=== PATIENT | female | born 1980 | race Caucasian/White ===

== ENCOUNTER 2016-06-11 19:05 | Emergency (ER) | payer OTHER ==
[~2016-06-11] VITALS: Ht 165.1 cm; Wt 75.3 kg
[~2016-06-11 19:05] MED LIST: BUPR-79 PO
[2016-06-11 19:09] VITALS: TEMP 37.4; Ht 165.1 cm; Wt 75.3 kg
[2016-06-11] MEDS ORDERED: CEFTRIAXONE SOD INJ 1 GM ADDVIAL IV STA (20:29)
[2016-06-11] MEDS ORDERED: ONDANSETRON INJ 2 MG/ML 2 ML VIAL IV STA (20:29)
[2016-06-11] MEDS ORDERED: SODIUM CHLORIDE 0.9% 1000ML 1,000 ML IV STA (20:29)
[2016-06-11] MEDS ORDERED: MoRPHine SULFATE 4 MG/ML 1 ML CARP\\VIAL IV STA (20:29)
[2016-06-11 21:17] LABS: BASO % 0.2 %; BASO ABS # 0.02 K/uL (0-0.2); COMPLETE YES; EOS % 0.2 %; HEMATOCRIT 42.1 % (37-47); IG% 0.1 %; LYMPH % 18.8 %; LYMPH ABS # 1.89 K/uL (1.2-3.4); MEAN CELL VOLUME 86.8 fL (80-100); MEAN CORPUSCULAR HEMOGLOBIN 30.3 pg (25-34); MEAN CORPUSCULAR HGB CONC 34.9 g/dl (32-36); NEUT % 72.7 %; PLATELET COUNT 300 K/uL (130-400); RED BLOOD COUNT 4.85 M/uL (4.2-5.4); WHITE BLOOD COUNT 10.07 K/uL (4.8-10.8)
[2016-06-11] MEDS ORDERED: CIPR1TAB10 PO (21:25)
--- NOTE | 2016-06-11 21:26 | DIAGNOSTIC IMAGING REPORT ---
CT SCAN OF THE ABDOMEN AND PELVIS WITHOUT CONTRAST CLINICAL HISTORY: Right flank pain COMPARISON STUDY: March 2013 TECHNIQUE: CT scan of the abdomen and pelvis was performed from the lung bases to the proximal femurs. Images are reviewed in the axial, sagittal, and coronal planes. IV contrast was not administered for this examination. CT DOSE: 710.44 mGy.cm FINDINGS: Lower chest: The heart is normal in size and configuration, without pericardial effusion. The lung bases and pleural spaces are clear. Liver: The unenhanced liver is normal in size, contour, and attenuation. There is no intrahepatic biliary ductal dilatation. Gallbladder: Unremarkable. Spleen: Normal in size and attenuation. Pancreas: Unremarkable. Adrenal glands: Unremarkable. Kidneys: There is a punctate nonobstructing left renal calculus. No ureteral or bladder calculi are visualized. There is minimal fullness the right renal collecting system. There is equivocal proximal right ureteral edema. The findings are likely secondary to either a passed calculus or urinary tract infection. Bowel: There are no transition zones indicate bowel obstruction. By history the appendix is surgically absent. There is no acute diverticulitis. Peritoneum: There is no intraperitoneal free air or abdominal ascites. Vasculature: The abdominal aorta is normal in course and caliber. Adenopathy: None. Pelvic viscera: The bladder, and pelvic viscera are unremarkable. Skeletal structures: No destructive osseous lesions are seen. IMPRESSION: 1. No evidence of bowel obstruction. No evidence of free air 2. Punctate nonobstructing left renal calculus 3. Minimal fullness of the right renal collecting system and equivocal proximal right periureteral edema. The findings are likely secondary to either a recently passed calculus or urinary tract infection Electronically signed by: Stevie Morley M.D. 06/11/2016 9:25 PM Dictated Date/Time: 06/11/2016 9:20 PM
[2016-06-11 21:33] LABS: BUN/CREATININE RATIO 14.2 (10-20); C-REACTIVE PROTEIN 2.98 mg/dl (0-0.29); MAGNESIUM 2.3 mg/dl (1.8-2.4); POTASSIUM 3.7 mmol/L (3.5-5.1)
[2016-06-11 21:47] LABS: URINE APPEARANCE TURBID (CLEAR); URINE COLOR DK YELLOW; URINE EPITHELIAL CELL AUTO >30 /lpf (0-5); URINE NITRITE POS (NEG); URINE PH 5.5 (4.5-7.5); URINE SPECIFIC GRAVITY 1.031 (1.000-1.030); UROBILINOGEN NEG (NEG); ZZUR CULT IF INDIC CLEAN CATCH YES
[2016-06-11 21:49] LABS: MANUAL MICROSCOPIC REQUIRED? NO; REVIEW REQ? YES
[2016-06-11 21:50] LABS: URINE BILIRUBIN NEG (NEG)
[2016-06-11 22:01] LABS: URINE MUCUS PRESENT (NONE PRSENT)
[2016-06-11] MEDS ORDERED: PERCOCET HOME PACK PO ONE (22:30)
[2016-06-11] MEDS ORDERED: OXYC-57 PO (22:34)
--- NOTE | 2016-06-11 22:36 | EMERGENCY ROOM VISIT NOTE ---
History First contact with patient: 20:22 Chief Complaint: URINARY SYMPTOMS Stated Complaint: BACK PAIN, VOMITING, BEING TREATED FOR KIDNEY INFE Nursing Triage Summary: pt co right low back pain, worse for 2-3 days. states she was dx with kidney infection on wednesday at pcp, given cipro. states "it's the wrong antiboitic." pt tearful. rates pain 10/10. associates n/v. pt states it "hurts" after she urinates. History of Present Illness The patient is a 35 year old female who presents to the Emergency Department by private vehicle for evaluation of her RIGHT-sided flank pain and symptoms of urinary tract infection. The patient reports that she started with symptoms of burning with urination and blood in her urine last week. Her symptoms progressively worsened. She was seen on Wednesday for primary care provider's office and started on Bactrim. They were contacted 2 days later and the antibiotic was changed to Cipro has a urine culture was found to be sensitive to this antibiotic. Despite being on the medication, she has had worsening pain in the RIGHT flank with persistent dysuria and occasional fevers. The patient has had nausea as well as vomiting. She reports a history of similar infection in the fall. The patient rates her current discomfort as a 10/10. She denies any headaches, dizziness, light headedness, chest pain, palpitations , short of breath, hematemesis, hematochezia, melena, hematuria, or dysuria. Review of Systems A complete 10-point Review of Systems was discussed with the patient, with pertinent positives and negatives listed in the History of Present Illness. All remaining Review of Systems questions can be considered negative unless otherwise specified. Past Medical/Surgical History Medical Problems: (1) History of D&C Surgical Problems: (1) History of appendectomy Family History FHx: breast cancer (aunt) FHx: heart disease (father, grandfather) FHx: hypertension (mother) Social History Smoking Status: Never Smoker Smokeless Tobacco Use: No Alcohol Use: occasionally Drug Use: none Marital Status: Housing Status: lives with family Occupation Status: employed Current/Historical Medications Scheduled Ciprofloxacin Hcl (Cipro), 500 MG PO BID Scheduled PRN Tramadol (Ultram), 1-2 TAB PO Q4H PRN for Pain Allergies Coded Allergies: Sumatriptan (Verified Allergy, ., 03/13/13) Physical Exam Vital Signs Date Time Temp Pulse Resp B/P Pulse Ox O2 Delivery O2 Flow Rate FiO2 06/11/16 22:56 77 18 130/75 94 06/11/16 21:22 73 18 126/83 97 Room Air 06/11/16 20:43 82 18 125/84 96 Room Air 06/11/16 19:09 37.4 101 16 129/72 97 Room Air Pain Rating (0-10): 10 Physical Exam VITAL SIGNS - Vital signs and nursing notes were reviewed. GENERAL - 35-year-old female appearing her stated age who is in no acute distress. Communicates well with provider and answers questions appropriately. LUNGS - Chest wall symmetric without accessory muscle use, intercostals retractions, or central cyanosis. Normal vesicular breath sounds CTA B/L. No wheezes, rales, or rhonchi appreciated. CARDIAC - RRR with S1/S2. No murmur, rubs, or gallops appreciated. ABDOMEN - Abdominal contour flat and without pulsations or visible masses. BS normoactive all four quadrants. No tenderness to palpation appreciated throughout. No guarding. No Rebound Tenderness. Negative Rovsing's. Negative Richmond's. No palpable masses, hepatosplenomegaly, or ascites noted. PSYCH - A&Ox3 and cooperates fully with examiner. Pt is very pleasant and interacts well with examiner. Medical Decision & Procedures ER Provider Diagnostic Interpretation: Radiological imaging and reports were reviewed by myself. Radiologist's Interpretation as follows: CT SCAN OF THE ABDOMEN AND PELVIS WITHOUT CONTRAST CLINICAL HISTORY: Right flank pain COMPARISON STUDY: March 2013 TECHNIQUE: CT scan of the abdomen and pelvis was performed from the lung bases to the proximal femurs. Images are reviewed in the axial, sagittal, and coronal planes. IV contrast was not administered for this examination. CT DOSE: 710.44 mGy.cm FINDINGS: Lower chest: The heart is normal in size and configuration, without pericardial effusion. The lung bases and pleural spaces are clear. Liver: The unenhanced liver is normal in size, contour, and attenuation. There is no intrahepatic biliary ductal dilatation. Gallbladder: Unremarkable. Spleen: Normal in size and attenuation. Pancreas: Unremarkable. Adrenal glands: Unremarkable. Kidneys: There is a punctate nonobstructing left renal calculus. No ureteral or bladder calculi are visualized. There is minimal fullness the right renal collecting system. There is equivocal proximal right ureteral edema. The findings are likely secondary to either a passed calculus or urinary tract infection. Bowel: There are no transition zones indicate bowel obstruction. By history the appendix is surgically absent. There is no acute diverticulitis. Peritoneum: There is no intraperitoneal free air or abdominal ascites. Vasculature: The abdominal aorta is normal in course and caliber. Adenopathy: None. Pelvic viscera: The bladder, and pelvic viscera are unremarkable. Skeletal structures: No destructive osseous lesions are seen. IMPRESSION: 1. No evidence of bowel obstruction. No evidence of free air 2. Punctate nonobstructing left renal calculus 3. Minimal fullness of the right renal collecting system and equivocal proximal right periureteral edema. The findings are likely secondary to either a recently passed calculus or urinary tract infection Laboratory Results 06/11/16 20:52 Red Blood Count 4.85, Mean Corpuscular Volume 86.8, Mean Corpuscular Hemoglobin 30.3, Mean Corpuscular Hemoglobin Concent 34.9, Mean Platelet Volume 9.0, Neutrophils (%) (Auto) 72.7, Lymphocytes (%) (Auto) 18.8, Monocytes (%) (Auto) 8.0, Eosinophils (%) (Auto) 0.2, Basophils (%) (Auto) 0.2, Neutrophils # (Auto) 7.32, Lymphocytes # (Auto) 1.89, Monocytes # (Auto) 0.81, Eosinophils # (Auto) 0.02, Basophils # (Auto) 0.02 06/11/16 20:52 Test 06/11/16 20:52 06/11/16 20:55 06/11/16 21:26 White Blood Count 10.07 K/uL (4.8-10.8) Red Blood Count 4.85 M/uL (4.2-5.4) Hemoglobin 14.7 g/dL (12.0-16.0) Hematocrit 42.1 % (37-47) Mean Corpuscular Volume 86.8 fL (80-100) Mean Corpuscular Hemoglobin 30.3 pg (25-34) Mean Corpuscular Hemoglobin Concent 34.9 g/dl (32-36) Platelet Count 300 K/uL (130-400) Mean Platelet Volume 9.0 fL (7.4-10.4) Neutrophils (%) (Auto) 72.7 % Lymphocytes (%) (Auto) 18.8 % Monocytes (%) (Auto) 8.0 % Eosinophils (%) (Auto) 0.2 % Basophils (%) (Auto) 0.2 % Neutrophils # (Auto) 7.32 K/uL (1.4-6.5) Lymphocytes # (Auto) 1.89 K/uL (1.2-3.4) Monocytes # (Auto) 0.81 K/uL (0.11-0.59) Eosinophils # (Auto) 0.02 K/uL (0-0.5) Basophils # (Auto) 0.02 K/uL (0-0.2) RDW Standard Deviation 40.8 fL (36.4-46.3) RDW Coefficient of Variation 12.7 % (11.5-14.5) Immature Granulocyte % (Auto) 0.1 % Immature Granulocyte # (Auto) 0.01 K/uL (0.00-0.02) Anion Gap 9.0 mmol/L (3-11) Est Creatinine Clear Calc Drug Dose 79.0 ml/min Estimated GFR () 83.9 Estimated GFR (Non- 72.4 BUN/Creatinine Ratio 14.2 (10-20) Calcium Level 9.0 mg/dl (8.5-10.1) Magnesium Level 2.3 mg/dl (1.8-2.4) Total Bilirubin 0.8 mg/dl (0.2-1) Aspartate Amino Transf (AST/SGOT) 11 U/L (15-37) Alanine Aminotransferase (ALT/SGPT) 17 U/L (12-78) Alkaline Phosphatase 63 U/L (45-117) C-Reactive Protein 2.98 mg/dl (0-0.29) Total Protein 8.4 gm/dl (6.4-8.2) Albumin 4.2 gm/dl (3.4-5.0) Globulin 4.2 gm/dl (2.5-4.0) Albumin/Globulin Ratio 1.0 (0.9-2) Lipase 166 U/L (73-393) Bedside Lactic Acid Venous 0.89 mmol/L (0.90-1.70) Urine Color DK YELLOW Urine Appearance TURBID (CLEAR) Urine pH 5.5 (4.5-7.5) Urine Specific Vinson 1.031 (1.000-1.030) Urine Protein 2+ (NEG) Urine Glucose (UA) NEG (NEG) Urine Ketones 4+ (NEG) Urine Occult Blood 3+ (NEG) Urine Nitrite POS (NEG) Urine Bilirubin NEG (NEG) Urine Urobilinogen NEG (NEG) Urine Leukocyte Esterase LARGE (NEG) Urine WBC (Auto) >30 /hpf (0-5) Urine RBC (Auto) 10-30 /hpf (0-4) Urine Hyaline Casts (Auto) 0 /lpf (0-5) Urine Epithelial Cells (Auto) >30 /lpf (0-5) Urine Bacteria (Auto) NEG (NEG) Urine Pathogenic Casts /lpf (0) Urine Mucus PRESENT (NONE PRSENT) Urine Yeast (Auto) (NONE PRSENT) Urine Test NEG (NEG) Medications Administered Medications (Trade) Dose Ordered Sig/Lilliam Route Start Time Stop Time Status Last Admin Dose Admin Sodium Chloride (Nss 1000ml) 1,000 ml @ 999 mls/hr Q1H1M STAT IV 06/11/16 20:29 06/11/16 21:29 DC 06/11/16 21:05 999 MLS/HR Ondansetron HCl (Zofran Inj) 4 mg NOW STAT IV 06/11/16 20:29 06/11/16 20:32 DC 06/11/16 21:04 4 MG Morphine Sulfate (MoRPHine SULFATE INJ) 4 mg NOW STAT IV 06/11/16 20:29 06/11/16 20:33 DC 06/11/16 21:05 4 MG Ceftriaxone Sodium (Rocephin Inj) 1 gm NOW STAT IV 06/11/16 20:29 06/11/16 20:33 DC 06/11/16 21:51 1 GM Tramadol HCl (Ultram Home Pack) 1 homepack UD ONCE PO 06/11/16 23:00 06/11/16 23:01 DC 06/11/16 22:54 1 HOMEPACK ED Course Patient was seen and evaluated by myself. Labs were drawn, saline lock in place. The patient was hydrated with a 1000 mL normal saline bolus. She was treated with 4 mg morphine and 4 mg Zofran intravenously for pain and nausea. She was treated with 1 g of Rocephin intravenously after blood cultures have been obtained. CT of the abdomen and pelvis with IV or oral contrast was obtained. Laboratory results demonstrate no acute leukocytosis, worrisome anemia, or bandemia. The patient has no significant electrolyte abnormalities. Urinalysis concerning for infection. Imaging results as above. Laboratory results and imaging studies were reviewed with the patient who acknowledges understanding. The patient was offered admission for continued pain medication as well as aggressive management for pyelonephritis. She declines at this time. She will continue Cipro. She was provided pain medication for home. The patient was educated on worrisome symptoms for return visit to the emergency department. Patient discharged home afebrile and in good condition. Medical Decision Given the patient's presentation and exam findings, I did elect to perform the above-mentioned workup. The patient presents today with RIGHT-sided flank pain , nausea, and dysuria. The patient is likely experiencing pyelonephritis secondary to a worsening UTI. She has only received a few doses of the Cipro. I questioned the patient is subtherapeutic at this point warranting intravenous antibiotics. She has no fever. She has no leukocytosis. She was provided intravenous Rocephin as well as pain medication. Patient responded well. She was offered admission for continued management which she adamantly declines at this point. She will follow-up with her primary care provider from today's visit. She will continue her Cipro. She will return for any changing or worsening symptoms. Patient discharged home afebrile and in good condition. In the evaluation and treatment of this patient, the following differential diagnoses were considered: Bladder Cancer, Chlamydial Genitourinary Infection, Cystitis, Herpes Simplex, Interstitial Cystitis, PID, Pyelonephritis, Urethritis , or Vaginitis. Impression Primary Impression: Pyelonephritis Departure Information Dispostion Home / Self-Care Condition GOOD Prescriptions Tramadol (Ultram) 50 Mg Tab 1-2 TAB PO Q4H Y for Pain, #20 TAB For Initial Treatment Prov: Bronson Littlejohn PA-C 06/11/16 Referrals César Yeh M.D.([facility]) (PCP) Patient Instructions My [facility], Pyelonephritis - [facility] Additional Instructions You have been treated in the Emergency Department for a Kidney Infection - Pyelonephritis. Continue your Cipro as prescribed. You have been prescribed Percocet to be used for pain control. This is a narcotic medication. You cannot drive or consume alcohol while on this medicine. This medicine should only be used for pain that cannot be controlled with [id number] pain medicines. For pain control, you can use the following [id number] medicines (if >12 yo): - Regular strength (325mg/tab) Tylenol (acetaminophen) 2 tabs every 4-6 hours as needed. Do not exceed 12 tablets in a 24 hour period. Avoid taking more than 4 grams (4000 mg) of Tylenol per day. This includes any other sources of acetaminophen you may take on a regular basis. - Regular strength (200 mg/tab) Advil (ibuprofen) 1-2 tabs every 4-6 hours as needed. Do not exceed a dose of 3200 mg per day. Drink plenty of water and stay well hydrated. As with any trip to the Emergency Department, you should follow-up with your Primary Care Provider from today's visit. Return to the emergency department if your symptoms persist despite treatment plan outlined above or if the following symptoms occur: increased fevers, chills , low back pain, nausea/vomiting, or blood in your urine.
[2016-06-11] MEDS ORDERED: TRAM-10 PO (22:51)
[2016-06-11 22:56] VITALS: BP 130/75; PULSE 77; O2SAT 94
[2016-06-11] MEDS ORDERED: TRAMADOL HCL 50 MG HOME PACK PO ONE (23:00)
== END 2016-06-11 22:56 | disposition home or self-care (01) ==
LOC: C.EDB 19:06 → C.EDA 22:56
DX: N12 Tubulo-interstitial nephritis, not specified as acute or chronic (principal)

== ENCOUNTER → 2017-04-15 | Outpatient (CLI) | payer OTHER ==
[~2017-04-15] MED LIST changes: -BUPR-79 PO; +CIPR1TAB10 PO
== END | disposition home or self-care (01) ==
LOC: C.PAPS 16:03
PROVIDERS: ATTEND Obstetrics & Gynecology
DX: Z12.4 Encounter for screening for malignant neoplasm of cervix (principal); R87.610 Atypical squamous cells of undetermined significance on cytologic smear of cervix (ASC-US)

== ENCOUNTER 2018-07-29 05:28 | Inpatient (IN) ==
--- NOTE | 2018-07-15 13:54 | PAT Medication Instructions ---
Medication Instructions Date of Service July 15, 2018 Home Medications norethindrone acetate 5 mg PO QAM ASK your surgeon for instructions norethindrone acetate 5 mg PO QAM Other Notes If you have any questions please call us at [phone] or [phone] or [phone] or [phone]
--- NOTE | 2018-07-18 10:25 | Anesthesiology Consultation ---
Date of Service July 18, 2018 Assessment & Plan (1) Encounter for pre-operative examination: - Check test AM DOS Chart Review Chart Review: Acceptable Risk for Surgery and Patient seen in Pre Admission Te sting Teaching & Discussion Pre-Anesthesia Teaching/Discussion Notes: Instructed NPO after midnight before surgery,except medications with 15 cc of water. Medication instructions provided according to the PAT guidelines. History Surgery Operation Date: 07/29/18 11:30 Proposed Procedures p Total Abdominal Hysterectomy, Preserve Ovaries - Rolando Jimenez MD Height/Weight Height: 5 ft 6 in Weight: 92.3 kg Allergies Allergy/AdvReac Type Severity Reaction Status Date / Time sumatriptan Allergy Severe HIVES Verified 06/10/18 08:29 "THROAT SWELLING SHUT" Medications Home Medications Medication Instructions Recorded Confirmed Last Taken norethindrone acetate 5 mg PO QAM 06/10/18 06/10/18 Unknown Past Medical History Medical History Endometriosis Migraine HX Temporomandibular joint disorder LOCKED X 1 ("LONG TIME AGO") Past Surgical History Surgical History History of appendectomy History of dilatation and curettage Past Anesthesia History No Hx of Anesthesia Complications and No Family Hx of Anesthesia Complications History of PONV No Motion Sickness Screening History of Motion Sickness: No Social History Smoking Status: Never smoker Do You Dip or Chew Tobacco: No Hx Alcohol Use: Yes Alcohol type: wine and hard liquor alcohol intake frequency: a few times a month Hx Substance Use: No substance use type: does not use Exercise / Class Metabolic Activity II 4-5 Yardwork/Stairs/Walk up hill Review of Systems Patient denies chest pain, shortness of breath, dyspnea on exertion, cough, wheezing, palpitations. Physical Exam Vital Signs VITALS BP 107/71 P 73 TEMP 98.7 SP02 98%RA RESP 14 PHYSICAL Full neck and c-spine range of motion. Full TMJ range of motion. TMD 3.5 finger breaths Mallampati Score 1 Dentition: intact Lungs: clear throughout to auscultation Cardiac: regular rate and rhythm, no murmurs noted Spine: normal Extremities: no edema Testing Laboratory Results 07/18/18 10:37 07/18/18 10:37 Blood Type A Positive 07/18/18 10:37 Antibody Screen NEGATIVE 07/18/18 10:37 PT 9.7 Seconds (9.0-12.0) 07/18/18 10:37 INR 0.9 (0.9-1.1) 07/18/18 10:37 APTT 24.8 Seconds (21.0-31.0) 07/18/18 10:37
--- NOTE | 2018-07-18 11:37 | History and Physical Report ---
DATE OF ADMISSION: 07/29/2018 CHIEF COMPLAINT: Pelvic pain, heavy vaginal bleeding. History of biopsy-proven endometriosis. HISTORY OF PRESENT ILLNESS: The patient is a 37-year-old 3, para 2, has had 1 spontaneous AB. General health is complicated by pelvic pain, heavy vaginal bleeding with clotting. In 2009 she underwent a diagnostic laparoscopy along with a D&C. At that time endometriosis was visualized. It was also biopsied and proven by biopsy of the uterosacral ligament. Since that time she has had trouble with heavy bleeding and clotting. She has heavy periods for 4-5 days of the cycle soaking over a pad an hour, passing large clots and being unable to function and get out of the house during that time. Because of that we placed her on norethindrone 5 mg a day to stop her period. She has been on the norethindrone for about 3 years. She also had complained of pain with intercourse, especially on deep penetration and these symptoms were consistent with the laparoscopic findings of 2009 which showed bilateral involvement of both uterosacral ligaments. She is presently being scheduled for a total abdominal hysterectomy with preservation of both ovaries and suspension of the vaginal cuff. It should be noted that she states that she has more pain on her right side than the left side. PAST MEDICAL HISTORY: Two children in good health. ALLERGIES: SHE ALLERGIC TO IMITREX WHICH CAUSES SWELLING AND SHORTNESS OF BREATH. PAST SURGICAL HISTORY: In 2009 she had diagnostic laparoscopic along with a D&C showed endometriosis. She also had an appendectomy. She had a D&C for a miscarriage and she had surgery on her right knee. MEDICAL HISTORY: She has a sporadic history of migraine headaches which she has not had problems in several years. SOCIAL HISTORY: No smoking, no excessive alcohol intake. Works for [employer]. FAMILY HISTORY: Mom at age 44 from a car accident. Father 60 in good health. Two brothers; 1 brother of a myocardial infarction at age 39. REVIEW OF SYSTEMS: She had some problems with migraine headaches. No history of frequent or severe bladder infections. PHYSICAL EXAMINATION: GENERAL: Well-developed, well-nourished 37-year-old white female, alert, oriented x3 and cooperative in no acute distress, appeared her stated age. EYES: Conjunctivae are pink. Sclerae white, no evidence of jaundice. EARS: Had normal light reflex bilaterally. NOSE: Had normal mucosa. Septum is midline. There were no polyps. THROAT: No erythema or evidence of infection. Teeth are in good state of repair. HEAD: Normocephalic, normal distribution of hair. NECK: Supple. Trachea midline. Thyroid is not enlarged. There is no adenopathy appreciated. Both carotids are of good intensity. CHEST: Clear to auscultation and percussion. No wheezes, rales or rhonchi appreciated. HEART: Had regular rhythm. S1 and S2 are normal. BREASTS: Normal. ABDOMEN: Soft and nontender. PELVIC: Revealed a normal appearing cervix. Uterus was retroverted. There was tenderness and nodularity on both uterosacral ligaments, more so on the right. MUSCULOSKELETAL: Revealed no calf tenderness. IMPRESSIONS OF THIS CASE: Status post appendectomy, status post D&C, status post right knee surgery, status post diagnostic laparoscopy with peritoneal biopsy, symptomatic endometriosis, and pelvic pain.
[2018-07-18 11:53] LABS: Basophils # (auto) 0.02 K/uL (0-0.2); Basophils % (auto) 0.2 %; Eosinophils # (auto) 0.05 K/uL (0-0.5); Eosinophils % (auto) 0.6 %; Hematocrit (blood only) 43.8 % (37-47); Hemoglobin 15.3 g/dL (12.0-16.0); Immature Granulocytes # (auto) 0.02 K/uL (0.00-0.02); Immature Granulocytes % (auto) 0.2 %; Lymphocytes # (auto) 2.68 K/uL (1.2-3.4); Lymphocytes % (auto) 29.9 %; Mean Corpuscular Hgb Conc 34.9 g/dL (32-36); Mean Corpuscular Volume 87.6 fL (80-100); Mean Platelet Volume 9.5 fL (7.4-10.4); Monocytes # (auto) 0.61 K/uL (0.11-0.59); Monocytes % (auto) 6.8 %; Neutrophils # (auto) 5.57 K/uL (1.4-6.5); Neutrophils % (auto) 62.3 %; Platelet Count 324 K/uL (130-400); RDW Coefficient of Variation 12.7 % (11.5-14.5); RDW Standard Deviation 40.9 fL (36.4-46.3); White Blood Count 8.95 K/uL (4.8-10.8)
[2018-07-18 11:59] LABS: BUN Creatinine Ratio 12.5 (10-20); Calcium 8.9 mg/dl (8.5-10.1); Creatinine Clr Calc Pharmacy 109.1 ml/min; Est GFR (African American) 108.4; Est GFR (Non-African American) 93.5; Potassium 4.2 mmol/L (3.5-5.1)
[2018-07-18 12:08] LABS: INR 0.9 (0.9-1.1); Partial Thromboplastin Ratio 0.9; Partial Thromboplastin Time 24.8 Seconds (21.0-31.0); Prothrombin Time 9.7 Seconds (9.0-12.0)
[2018-07-29] MEDS ORDERED: LR 15ML/HR IV SCH (06:00)
[2018-07-29] MEDS ORDERED: MIDAZOLAM HCL 1 MG/ML 2ML VIAL ONE (06:56)
[2018-07-29] MEDS ORDERED: fentaNYL citrate 100 MCG/2 ML VIAL ONE (06:56)
--- NOTE | 2018-07-29 07:08 | History & Physical Bridge Note ---
Date of Service July 29, 2018 History & Physical Bridge Note I have examined the patient, reviewed the History & Physical and in the interval since the performance of the History & Physical I have noted the following changes of clinical significance: no changes noted
[2018-07-29] MEDS ORDERED: MoRPHine SULFATE PF 1 MG/ML 10 ML AMP/VIAL ONE (07:22)
[2018-07-29] MEDS ORDERED: ROCURONIUM BROMIDE 10 MG/ML 5 ML VIAL ONE (08:08)
[2018-07-29] MEDS ORDERED: GLYCOPYRROLATE 0.2 MG/ML VIAL ONE (08:09)
[2018-07-29] MEDS ORDERED: DEXAMETHASONE SOD INJ 4 MG/ML VIAL ONE (08:09)
[2018-07-29] MEDS ORDERED: ONDANSETRON INJ 2 MG/ML 2 ML VIAL ONE ×3 (08:09→14:19)
[2018-07-29] MEDS ORDERED: PROPOFOL IV EMULSION 10 MG/ML 20 ML VIAL IV ONE (08:09)
[2018-07-29] MEDS ORDERED: NEOSTIGMINE METHYLSULFATE 5 MG/5 ML SYR ONE (08:09)
[2018-07-29] MEDS ORDERED: LIDOCAINE HCL 2% 2 ML VIAL/AMP(20MG/ML) INFIL ONE (08:09)
[2018-07-29] MEDS ORDERED: cefOXitin 2,000 MG in DEXTROSE 5% 50 ML IV SCH (08:15)
[2018-07-29] MEDS ORDERED: BISACODYL 10 MG SUPP PR PRN (09:44)
[2018-07-29] MEDS ORDERED: KETOROLAC 30 MG/ML VIAL IV PRN ×2 (09:44→09:57)
[2018-07-29] MEDS ORDERED: MAGNESIUM HYDROXIDE SUSP 30 ML UDC PO PRN (09:44)
[2018-07-29] MEDS ORDERED: SENNA 8.6 MG TAB PO PRN (09:44)
[2018-07-29] MEDS ORDERED: DiphenhydrAMINE HCL 50 MG/ML VIAL IV PRN (09:57)
[2018-07-29] MEDS ORDERED: NALBUPHINE HCL INJ 10 MG/ML AMP IV PRN (09:57)
[2018-07-29] MEDS ORDERED: ePHEDrine sulfate 50 MG/ML AMP IV PRN (09:57)
[2018-07-29] MEDS ORDERED: LACTATED RINGER'S 500 ML IV PRN (09:57)
[2018-07-29] MEDS ORDERED: NALOXONE HCL 0.08 MG in SYRINGE 1.8 ML IV PRN (09:57)
[2018-07-29] MEDS ORDERED: NALOXONE HCL 0.4 MG/1 ML VIAL/CARP IV PRN (09:57)
[2018-07-29] MEDS ORDERED: HYDROmorphone INJ 0.5 MG/0.5 ML SYR IV PRN (09:57)
[2018-07-29] MEDS ORDERED: MEPERIDINE HCL 25 MG/ML CARP IV PRN (09:57)
[2018-07-29] MEDS ORDERED: NALOXONE HCL 1 MG in SODIUM CHLORIDE 0.9% 1000ML 1,000 ML IV PRN (09:57)
[2018-07-29] MEDS ORDERED: MoRPHine SULFATE PF 1 MG/ML 10 ML AMP/VIAL INT SPINAL ONE (09:57)
[2018-07-29] MEDS ORDERED: MoRPHine SULFATE 2 MG/ML CARP IV PRN (09:57)
[2018-07-29] MEDS ORDERED: KETOROLAC 30 MG/ML VIAL ONE (09:58)
[2018-07-29] MEDS ORDERED: SODIUM CHLORIDE 0.9% 1000ML 1,000 ML IV SCH (10:00)
[2018-07-29] MEDS ORDERED: NO NARCOTICS OR SEDATIVES SCH (10:00)
[2018-07-29] MEDS: fentaNYL citrate 100 MCG/2 ML VIAL IV PRN ×2 (10:30→10:35)
--- NOTE | 2018-07-29 10:56 | Anesthesiology Progress Note ---
Date of Service July 29, 2018 Anesthesia Post Procedure Vital Signs Vital Signs: Temp Pulse Pulse Resp BP BP Pulse Ox 07/29/18 10:45 55 L 16 110/59 L 98 07/29/18 10:35 54 L 12 102/63 98 07/29/18 10:25 54 L 14 115/73 97 07/29/18 10:15 56 L 17 115/65 97 07/29/18 10:05 53 L 10 L 99/71 L 99 07/29/18 09:55 52 L 11 L 101/69 100 07/29/18 09:46 36.5 C 50 L 18 96/57 L 99 07/29/18 05:47 37.1 C 67 18 121/73 96 Pain Intensity Lower Abdomen: Pain Intensity: 9 Notes Mental Status: alert / awake / arousable and participated in evaluation Patient Amnestic to Procedure: Yes Nausea / Vomiting: adequately controlled Pain: adequately controlled Airway Patency, RR, SpO2: stable & adequate BP & HR: stable & adequate Hydration State: stable & adequate Anesthetic Complications: no major complications apparent and Pt Satisfied with anesthetic care
[2018-07-29] MEDS: D5W AND LACTATED RINGERS 1,000 ML IV SCH ×2 (12:05→21:37)
[2018-07-29] MEDS: ONDANSETRON INJ 2 MG/ML 2 ML VIAL IV PRN ×2 (14:24→18:42)
--- NOTE | 2018-07-29 14:31 | Operative Report ---
DATE OF OPERATION: 07/29/2018 PROCEDURE: Total abdominal hysterectomy, suspension of vaginal cuff. INDICATIONS FOR SURGERY: Symptomatic endometriosis, pelvic pain, severe dysmenorrhea. PREOPERATIVE DIAGNOSIS: Symptomatic endometriosis. POSTOPERATIVE DIAGNOSIS: Symptomatic endometriosis. PATHOLOGY: Pending. SURGEON: Dr. Jimenez. CONDENSER TUBE TENDER: Dr. Rhodes. ESTIMATED BLOOD LOSS: 200 mL. ANESTHESIA: General with spinal narcotics. OPERATIVE FINDINGS AND PROCEDURE: The patient was brought to the OR table, correctly identified by armband and conversation. Spinal narcotics were administered. General anesthesia was administered. Perineum and vagina were painted with Betadine paint. Estrella catheter was inserted aseptically in the bladder. Lower abdomen was painted with an alcohol based sterilizing solution, draped in the usual sterile fashion. Pfannenstiel incision was made, carried down to the anterior fascia by sharp dissection. Hemostasis was secured by electrocauterization. Fascia was incised transversely from the underlying muscle by blunt and sharp dissection. Recti muscles were in the midline exposing the peritoneum which was carefully raised and entered. Incision was made above the vesicouterine fold. Bladder was undermined bluntly and pushed out of the operative field. The round ligaments on either side were suture ligated with chromic gut sutures, tagged, cauterized and cut. The ovarian ligament was then ligated distally and proximally and cut. Uterine vessels were skeletonized, clamped with a curved Thor, cut with a stump, ligated with a chromic gut suture. The bladder was advanced out of the operative field. A curved Thor's were used to slide off the cervix on either side with 3 bites and then cut with a stump and ligated with a chromic gut suture. The cervix was then shelled out with electrocauterization, thus excising the surgical specimen consisting of uterus and cervix. Vaginal cuff were suture ligated to the stumps of the cardinal ligaments on either side with a chromic gut suture. The vaginal cuff was approximated front to back at each angle with a suture chromic gut. The middle of the vaginal cuff was whipstitched open with a chromic gut suture. A Miller drain was placed into the vagina and then a uketzq-[id number]-cljbq suture was used to obliterate the cul-de-sac. This was done with a heavy Vicryl by going from the cardinal ligaments on the left side to the distal uterosacral ligaments and then on the right side, then from the distal uterosacral ligament on the left side to the cardinal ligaments on the other side, then tied with a [id number]. We then reperitonealized. We did sew the first cuff drain in with a first reperitonealization, we had to cut the suture, removed the drain, then placed a new drain and then 2 or 3 interrupted jtktrb-au-[id number] sutures to approximate the cuff. We had a little bit of bleeding on the right ovary. We suture ligated this several times and cauterized it. Finally, we washed everything out. The vaginal cuff was well suspended, was reperitonealized, the ovaries were high on the lateral pelvic wall. Hemostasis was good. Packs were removed. Instrument count was good. Peritoneum was closed with a continuous chromic gut suture. Recti muscles approximated with interrupted ryczyh-mn-livmc suture of chromic catgut. The fascia was closed with continuous interlocking suture of Vicryl on each side, tied in the midline. SubQ was approximated with plain. The skin edges were approximated with staple clips. Following this, hemostasis was good. Urine output was good. The patient tolerated the procedure well and left the OR in good condition. I attest to the content of the Intraoperative Record and any orders documented therein. Any exception s are noted below.
[2018-07-29] MEDS ORDERED: ONDANSETRON INJ 2 MG/ML 2 ML VIAL IV PRN (14:32)
[2018-07-30] MEDS ORDERED: DC INTRASPINAL MORPHINE SCH (03:57)
[2018-07-30] MEDS ORDERED: OXYCODONE/ACETAMINOPHEN 5mg/325mg TAB PO PRN (04:00)
[2018-07-30] MEDS ORDERED: MEPERIDINE HCL 50 MG/ML CARP IV PRN (04:00)
[2018-07-30] MEDS ORDERED: Nursing to Pharmacy Communication ONE (05:00)
[2018-07-30] MEDS: D5W AND LACTATED RINGERS 1,000 ML IV SCH (05:10)
[2018-07-30 06:09] LABS: Basophils # (auto) 0.01 K/uL (0-0.2); Basophils % (auto) 0.1 %; Eosinophils # (auto) 0.03 K/uL (0-0.5); Eosinophils % (auto) 0.3 %; Hematocrit (blood only) 34.8 % (37-47); Immature Granulocytes # (auto) 0.01 K/uL (0.00-0.02); Immature Granulocytes % (auto) 0.1 %; Lymphocytes # (auto) 2.29 K/uL (1.2-3.4); Lymphocytes % (auto) 21.2 %; Mean Corpuscular Hgb Conc 34.5 g/dL (32-36); Mean Corpuscular Volume 88.3 fL (80-100); Mean Platelet Volume 9.3 fL (7.4-10.4); Monocytes # (auto) 1.29 K/uL (0.11-0.59); Monocytes % (auto) 11.9 %; Neutrophils # (auto) 7.19 K/uL (1.4-6.5); Neutrophils % (auto) 66.4 %; Platelet Count 268 K/uL (130-400); RDW Coefficient of Variation 12.6 % (11.5-14.5); RDW Standard Deviation 40.8 fL (36.4-46.3); Red Blood Count 3.94 M/uL (4.2-5.4); White Blood Count 10.82 K/uL (4.8-10.8)
--- NOTE | 2018-07-30 10:29 | Obstetrical Progress Note ---
Date of Service July 30, 2018 Physical Exam Physical Exam: abdomen soft and non tender vaginal bleeding scant to moderate bandage removed incision is clean dry bowel sounds are hypoactive Results & Data Vital Signs (Past 12 Hours) Vital Signs Temp Pulse Resp BP Pulse Ox 07/30/18 07:20 37.1 C 58 L 18 104/69 97 07/30/18 04:25 37 C 64 16 98/60 L 99 07/30/18 03:15 16 97 07/30/18 02:07 16 96 07/30/18 01:15 16 96 07/30/18 00:15 37.1 C 66 16 103/57 L 95 07/29/18 23:15 18 96
[2018-07-30] MEDS ORDERED: IBUPROFEN 600 MG TAB PO ONE (11:28)
[2018-07-30] MEDS: IBUPROFEN 600 MG TAB PO PRN ×2 (15:54→20:24)
[2018-07-31] MEDS: IBUPROFEN 600 MG TAB PO PRN ×3 (00:27→10:31)
[2018-07-31 06:02] LABS: Basophils # (auto) 0.02 K/uL (0-0.2); Basophils % (auto) 0.2 %; Eosinophils # (auto) 0.04 K/uL (0-0.5); Eosinophils % (auto) 0.4 %; Hematocrit (blood only) 34.5 % (37-47); Hemoglobin 11.7 g/dL (12.0-16.0); Immature Granulocytes # (auto) 0.02 K/uL (0.00-0.02); Immature Granulocytes % (auto) 0.2 %; Lymphocytes # (auto) 2.12 K/uL (1.2-3.4); Lymphocytes % (auto) 21.4 %; Mean Corpuscular Hgb Conc 33.9 g/dL (32-36); Mean Corpuscular Volume 89.6 fL (80-100); Mean Platelet Volume 9.2 fL (7.4-10.4); Monocytes # (auto) 0.92 K/uL (0.11-0.59); Monocytes % (auto) 9.3 %; Neutrophils % (auto) 68.5 %; Platelet Count 268 K/uL (130-400); RDW Coefficient of Variation 12.7 % (11.5-14.5); RDW Standard Deviation 41.6 fL (36.4-46.3); Red Blood Count 3.85 M/uL (4.2-5.4); White Blood Count 9.92 K/uL (4.8-10.8)
--- NOTE | 2018-07-31 10:20 | Obstetrical Progress Note ---
Date of Service July 31, 2018 Physical Exam Physical Exam: abdomen soft and non tender incision is clean and dry vaginal bleeding scant to moderate jorge drain fell out on 07/30/18 no calf tenderness ambulating well Results & Data Vital Signs (Past 12 Hours) Vital Signs Temp Pulse Pulse Resp BP Pulse Ox 07/31/18 10:05 37.2 C 71 18 127/83 96 07/31/18 08:00 37.2 C 71 18 127/83 96 07/30/18 23:40 37.0 C 76 18 119/76 97
--- NOTE | 2018-07-31 22:34 | Discharge Summary ---
Mrs. Wright was admitted with history of pelvic pain secondary to endometriosis. She had been previously diagnosed laparoscopically with a peritoneal biopsy to confirm the diagnosis and she had been managed conservatively. She eventually had to be placed on norethindrone and after about a year or two of norethindrone, we could not take her off. Every time we take her off, she started to have pelvic pain, severe dysmenorrhea. She was taken to the OR the day of admission. Under general anesthesia and spinal narcotics, she underwent a total abdominal hysterectomy with preservation of both of her ovaries. Preoperative hemoglobin was 15.3, hematocrit 43.8. Postoperatively, hemoglobin to 11.7, hematocrit 34.5. Postoperatively, she did well. She remained afebrile. Bowel sounds returned promptly. Grover drain fell out spontaneously the day prior to admission. At the time of admission, she was ambulating well, eating well, passing gas. Incision was clean and dry. Vaginal bleeding was scant to moderate. There was no calf tenderness. She was instructed to call if she has temperature over 100, call if she has any heavy bleeding, return to the office in a week for removal of some of the gaby.
--- OUTSIDE RECORDS SUMMARY | 2018-08-01 21:48 | External Medical Summary | Continuity of Care Document ---
:1980 Author Name Humaira Mcduffie Address Unavailable Unavailable , Care Team Providers Name Role Phone Maico Mcduffie Unavailable [email or web address], [email or web address] Unavailable Unavailable Problems Active medical history not documented Allergies and Adverse Reactions Allergy history not documented Medications Medications not documented Procedures Procedures not documented Immunizations Immunizations not documented Plan of Treatment Planned Observations Planned Goals not documented Results No Known Results Results not documented
== END 2018-07-31 11:00 | disposition home or self-care (01) | DRG 743 ==
LOC: ASU 05:28 → 4N 05:28

== ENCOUNTER 2021-07-29 14:51 | Observation (INO) ==
[2021-07-29 15:52] LABS: Hemoglobin 15.4 g/dL (12.0-16.0); Mean Corpuscular Hemoglobin 35.4 pg (25-34); Mean Corpuscular Hgb Conc 39.5 g/dL (32-36); Mean Corpuscular Volume 89.7 fL (80-100); Mean Platelet Volume 9.4 fL (7.4-10.4); Platelet Count 292 K/uL (130-400); RDW Coefficient of Variation 12.7 % (11.5-14.5); RDW Standard Deviation 41.6 fL (36.4-46.3); Red Blood Count 4.35 M/uL (4.2-5.4); White Blood Count 12.17 K/uL (4.8-10.8)
[2021-07-29 16:16] LABS: Albumin Globulin Ratio 1.3 (0.9-2); BUN Creatinine Ratio 23.9 (10-20); Bilirubin,Total 0.3 mg/dl (0.2-1.0); Calcium 8.6 mg/dl (8.5-10.1); Creatinine Clr Calc Pharmacy 123.3 ml/min; Est GFR (African American) 126.5 ml/min; Est GFR (Non-African American) 109.2 ml/min; Potassium 3.6 mmol/L (3.5-5.1)
[2021-07-29 16:30] LABS: Basophils # (auto) 0.01 K/uL (0-0.2); Basophils % (auto) 0.1 %; Eosinophils # (auto) 0.04 K/uL (0-0.5); Eosinophils % (auto) 0.3 %; Immature Granulocytes # (auto) 0.02 K/uL (0.00-0.02); Immature Granulocytes % (auto) 0.2 %; Lymphocytes # (auto) 3.02 K/uL (1.2-3.4); Lymphocytes % (auto) 24.8 %; Monocytes # (auto) 0.87 K/uL (0.11-0.59); Monocytes % (auto) 7.1 %; Neutrophils # (auto) 8.21 K/uL (1.4-6.5); Neutrophils % (auto) 67.5 %
[2021-07-29] MEDS ORDERED: ONDANSETRON INJ 2 MG/ML 2 ML VIAL IV STA (18:01)
[2021-07-29] MEDS ORDERED: MoRPHine SULFATE 10 MG/ML CARP/VIAL IV STA (18:01)
[2021-07-29] MEDS ORDERED: SODIUM CHLORIDE 0.9% 1000ML 1,000 ML IV ONE (18:01)
[2021-07-29] MEDS ORDERED: AMPICILLIN/SULBACTAM SOD 3,000 MG in 0.9 % SODIUM CHLORIDE 100 ML IV STA (18:01)
--- NOTE | 2021-07-29 18:03 | Emergency Department Note ---
Impression & Plan Facial cellulitis, Toothache, Dental infection ED Provider Note NAME: RAFA HAWTHORNE AGE: 40 SEX: F : 1980 ARRIVES VIA: Walk-In INFORMANT: Patient ED PROVIDER(S): Fede Fraser DO CHIEF COMPLAINT: right upper facial swelling HPI: Patient is a 40-year-old female who presents to the ER for right-sided facial swelling. She notes it started initially on Wednesday when she felt like she cracked her right upper tooth. She was seen here and had a CT done over the weekend. She was placed on Augmentin and discharged. She followed up with her dentist yesterday and they switched her to azithromycin. She notes the swelling has worsened and pain has increased. She denies any fevers. She was seen by Dr. Cartwright and referred over for admission and possible drainage in the morning. Denies any swelling in the throat or trouble swallowing. Is more painful with eating and drinking. Pain is constant and 8 out of 10. She took Advil while in the waiting room. ROS: See above HPI for pertinent positives & negatives. A total of 10 systems reviewed and were otherwise negative. PAST MEDICAL HISTORY:See Below PAST SURGICAL HISTORY:See Below FAMILY HISTORY:See Below SOCIAL HISTORY:See Below HOME MEDICATIONS:See Below ALLERGIES:See Below VITALS:See Below PHYSICAL EXAMINATION: GENERAL: Sitting up in bed, alert, well appearing, well nourished, no distress, non-toxic EYE EXAM: normal conjunctiva. PERRL and EOM's grossly intact. FACE: Swelling over the right cheekbone without any surrounding cellulitis. Skin is firm and tender OROPHARYNX: Swelling and tenderness along the right upper mid jaw, and tongue normal and mucous membranes are moist NECK: supple, no nuchal rigidity, no adenopathy, non-tender LUNGS: Clear to auscultation. Normal chest wall mechanics HEART: no murmurs, S1 normal and S2 normal ABDOMEN: abdomen soft, non-tender, normo-active bowel sounds, no masses, no rebound or guarding. UPPER EXTREMITIES: upper extremities are grossly normal. LOWER EXTREMITIES: No pitting edema. NEURO EXAM: Normal sensorium, cranial nerves II-XII grossly intact, normal speech, no gross weakness of arms, no gross weakness of legs. MEDICAL DECISION MAKING: Patient is a 40-year-old female referred in by Dr. Cartwright for swelling of the right jaw. IV was established blood was obtained. Labs show mild leukocytosis of 12,000. No significant anemia. BMP along with LFTs bilirubin was unremarkable. COVID was negative. Patient was given steroids fluids morphine and Unasyn. Per report Dr. Cartwright recommended no additional imaging. Patient was admitted to the hospitalist for further evaluation. Triage Nursing notes reviewed. Limited review of prior medical records performed Vital Signs: reviewed and remarkable for no significant abnormalities Differential diagnosis: Cellulitis, abscess, MRSA infection, DVT, necrotizing fasciitis, dermatitis, drug eruption, allergic reaction, as well as other pathologies. ER treatment provided: See below Diagnostics interpreted by me: ECG: none Cardiac Monitoring: An order was placed for continuous cardiac monitoring. The monitor shows a rate of 60 with sinus rhythm. Laboratory studies: As stated above and show below. Imaging studies: See below Consultation(s): Discussed with [facility] for further evaluation Procedures: none PDMP:reviewed and no issues Critical Care: None Past Med/Surg History Medical History Adverse reaction to contrast media Depression Endometriosis Migraine HX Seasonal allergies Temporomandibular joint disorder LOCKED X 1 ("LONG TIME AGO") Surgical History History of appendectomy History of dilatation and curettage History of hysterectomy S/P ACL surgery Family History Aunt Breast cancer Grandmother (Paternal) Breast cancer Social History Smoking Status: Never smoker Second Hand Exposure: No; Do You Dip or Chew Tobacco: No; Tobacco Cessation Education Requested by Patient: No Hx Alcohol Use: Yes Alcohol type: wine and hard liquor Hx Substance Use: No Preferred Language: Italian Communication Ability: Effective Visual Impairment: No Limitations Senior Reservoir Engineer Required: No Beliefs That Will Affect Care: None marital status: Current Living Situation: Family current occupational status: employed Other Information That Helps Us Care for You: No Feels Safe at Home: Yes Safety Concerns: Feels Safe At This Time Assistive Devices: None Allergies Allergies Allergy/AdvReac Type Severity Reaction Status Date / Time sumatriptan Allergy Severe HIVES Verified 07/29/21 14:05 "THROAT SWELLING SHUT" Home Meds Home Medications Medication Instructions Recorded Confirmed hydrochlorothiazide 25 mg tablet 25 mg PO QAM PRN 07/29/18 07/29/21 azithromycin 500 mg tablet 500 mg PO DAILY 07/29/21 07/29/21 (Zithromax) Previous Rx's Medication Instructions Recorded oxycodone 5 mg tablet 5 mg PO Q6H PRN #10 tab 07/28/21 Results & Data (ED) Vital Signs Vital Signs - 24 hr 07/29/21 15:01 07/29/21 18:51 Temperature 36.4 C L Temperature Source Temporal Artery Scan Pulse Rate 67 Pulse Rate [Apical] 64 Respiratory Rate 16 12 Respiratory Effort / Characteristics Non-Labored Non-Labored Spontaneous Respiratory Depth Normal Normal Blood Pressure 127/86 Blood Pressure [Left Arm] 130/74 Blood Pressure Mean 99 Blood Pressure Mean [Left Arm] 92 Pulse Oximetry 98 97 Oxygen Delivery Method Room Air Room Air Sepsis Recent Fever Within 48 Hours No Sepsis New/Unexplained Change in Mental Status No Sepsis Action Taken by Nursing No Action Required Laboratory Data Result diagrams: 07/29/21 13:25 07/29/21 13:25 Lab Results 07/29/21 07/29/21 Range/Units 13:25 13:25 WBC 12.17 H (4.8-10.8) K/uL RBC 4.35 (4.2-5.4) M/uL Hgb 15.4 (12.0-16.0) g/dL Hct 39.0 (37-47) % MCV 89.7 (80-100) fL MCH 35.4 H (25-34) pg MCHC 39.5 H D (32-36) g/dL RDW Std Deviation 41.6 (36.4-46.3) fL RDW Coeff of Millicent 12.7 (11.5-14.5) % Plt Count 292 (130-400) K/uL MPV 9.4 (7.4-10.4) fL Immature Gran % (Auto) 0.2 % Neut % (Auto) 67.5 % Lymph % (Auto) 24.8 % Mcnairy % (Auto) 7.1 % Eos % (Auto) 0.3 % Baso % (Auto) 0.1 % Neut # (Auto) 8.21 H (1.4-6.5) K/uL Lymph # (Auto) 3.02 (1.2-3.4) K/uL Mcnairy # (Auto) 0.87 H (0.11-0.59) K/uL Eos # (Auto) 0.04 (0-0.5) K/uL Baso # (Auto) 0.01 (0-0.2) K/uL Immature Gran # (Auto) 0.02 (0.00-0.02) K/uL Sodium 139 (136-145) mmol/L Potassium 3.6 (3.5-5.1) mmol/L Chloride 105 (98-107) mmol/L Carbon Dioxide 28 (21-32) mmol/L Anion Gap 6 (3-11) BUN 16 (6-23) mg/dl Creatinine 0.67 (0.6-1.2) mg/dl Est Cr Clr Drug Dosing 123.3 ml/min Est GFR ( Amer) 126.5 ml/min Est GFR (Non-Af Amer) 109.2 ml/min BUN/Creatinine Ratio 23.9 H (10-20) Glucose 76 (70-99(Fasting)) mg/dl Calcium 8.6 (8.5-10.1) mg/dl Total Bilirubin 0.3 D (0.2-1.0) mg/dl AST 13 (13-39) U/L ALT 15 (7-52) U/L Alkaline Phosphatase 55 (34-104) U/L Total Protein 7.0 (6.0-8.3) gm/dl Albumin 4.0 (3.4-5.0) gm/dl Globulin 3.0 (2.5-4.0) gm/dl Albumin/Globulin Ratio 1.3 (0.9-2) Administered Medications Ibuprofen (Ibuprofen 800 Mg Tab) 800 mg PO TID PRN PRN Reason: Pain Stop: 08/28/21 21:20 Last Admin: 07/29/21 23:11 Dose: 800 mg Documented by: [id number] Discontinued Medications Sodium Chloride (Nss 1000ml) 1,000 mls @ 999 mls/hr IV .Q1H1M ONE Stop: 07/29/21 19:01 Last Infusion: 07/29/21 20:14 Dose: 0 mls/hr Documented by: [id number] Admin: 07/29/21 18:57 Dose: 999 mls/hr Documented by: [id number] Ampicillin Sodium/Sulbactam Sodium 3,000 mg/ Sodium Chloride 108 mls @ 200 mls/hr IV NOW STA; Protocol Stop: 07/29/21 18:33 Last Infusion: 07/29/21 20:13 Dose: 0 mls/hr Documented by: [id number] Admin: 07/29/21 19:18 Dose: 200 mls/hr Documented by: [id number] Methylprednisolone (Methylprednisolone 40 Mg/Ml Vial) 40 mg IV NOW STA Stop: 07/29/21 18:02 Last Admin: 07/29/21 18:53 Dose: 40 mg Documented by: [id number] Morphine Sulfate (Morphine Sulfate 10 Mg/Ml Carp/Vial) 6 mg IV NOW STA Stop: 07/29/21 18:02 Last Admin: 07/29/21 18:59 Dose: 6 mg Documented by: [id number] Ondansetron HCl (Ondansetron Inj 2 Mg/Ml 2 Ml Vial) 4 mg IV NOW STA Stop: 07/29/21 18:02 Last Admin: 07/29/21 18:58 Dose: 4 mg Documented by: [id number] Discharge Plan Visit Data Chief Complaint: Dental/Oral Stated Complaint: TOOTH PINCHES NERVE ED Provider: Fede Fraser Discharge Problem: Facial cellulitis, Toothache, Dental infection Patient Disposition: Admitted As Inpatient Discharge Instructions Interventions: ED Discharge Assessment Last Done: 07/29/21 21:03
--- NOTE | 2021-07-29 19:06 | History & Physical Report ---
Date of Service July 29, 2021 Assessment & Plan (1) Facial cellulitis: (2) Dental infection: Plan: Pt seen by oral maxillofacial surgery today who referred pt for admission for IV antibiotics and possible intervention tomorrow. Admit to med/surg IV antibiotics (Unasyn) Pain control Oral maxillofacial surgery consult Clear liquids tonight, NPO after midnight until evaluated by surgery. Pt seen and reviewed with collaborating physician, Dr. Wilkinson. Plan of care discussed and as outlined above. DVT Prophylaxis: SCDs Code Status: full code Julio Rashid PA-C History of Present Illness Chief Complaint: facial swelling Primary Care Provider: Elijah Palomares MD This is a 40 y/o female with a PMH of migraines, endometriosis and seasonal allergies who was referred to the ED today from oral maxillofacial surgery due to progressive facial swelling from an underlying dental infection. Pt reports that six days ago she heard a crack in a right upper tooth while she was eating. She has had a crown in a right upper molar which she thought may have cracked. Pain started almost immediately and gradually worsened. She called her dentist ([facility]) but they were not able to get her in until yesterday. She was started on Amoxicillin. On Wednesday, three days ago, she started with right facial swelling. This swelling worsened on Wednesday with some right-sided facial numbness so pt came to the ED for evaluation. CT of the soft tissue of the neck showed inflammatory changes but no definitive abscess. Amoxicillin was changed to Augmentin and pt was told to keep f/u appt with dentist on Wednesday. Pt saw her dentist yesterday who disagreed with the Augmentin and changed her to azithromycin. Today, she felt like the swelling was worse and the right facial numbness started to spread to the left side of her face. She was seen by Dr. Cartwright this afternoon who referred her to the ED to be admitted for IV antibiotics and possible intervention tomorrow. She denies fevers, chills, sweats. She has noted headaches. She is using ibuprofen 800 mg for pain (last dose in the waiting room) as well as oxycodone 5 mg (last dose around 9 am today). Allergies Allergy/AdvReac Type Severity Reaction Status Date / Time sumatriptan Allergy Severe HIVES Verified 07/29/21 14:05 "THROAT SWELLING SHUT" Home Medications Medication Instructions Recorded Confirmed Type hydrochlorothiazide 25 mg tablet 25 mg PO QAM PRN 07/29/18 07/29/21 History oxycodone 5 mg tablet 5 mg PO Q6H PRN #10 tab 07/28/21 07/29/21 Rx azithromycin 500 mg tablet 500 mg PO DAILY 07/29/21 07/29/21 History (Zithromax) Past Med/Surg History Medical History Adverse reaction to contrast media Depression Endometriosis Migraine HX Seasonal allergies Temporomandibular joint disorder LOCKED X 1 ("LONG TIME AGO") Surgical History History of appendectomy History of dilatation and curettage History of hysterectomy S/P ACL surgery Family History Aunt Breast cancer Grandmother (Paternal) Breast cancer Social History Smoking Status: Never smoker Second Hand Exposure: No (IN THE PAST PARENTS); Hx Alcohol Use: Yes Alcohol type: wine and hard liquor Hx Substance Use: No Preferred Language: Vincentian Communication Ability: Effective Visual Impairment: No Limitations Pmo Business Analyst Required: No Beliefs That Will Affect Care: None marital status: Current Living Situation: Significant Other current occupational status: employed Feels Safe at Home: Yes Assistive Devices: None Review of Systems Review of Systems: All systems reviewed & are unremarkable except as noted in HPI & below Constitutional: + fatigue and + anorexia; no fever, no chills and no sweats Ear, Nose, Mouth, Throat: as per Subjective / HPI; no dysphagia Respiratory: no cough, no dyspnea and no wheezing Cardiovascular: no chest pain, no lightheadedness and no edema Gastrointestinal: no abdominal pain, no vomiting, no diarrhea/loose stools and no blood in stools Genitourinary: no dysuria and no hematuria Musculoskeletal: no back pain and no neck pain Integumentary: no yellowing of the skin Neurologic: + numbness and + headache(s) Psychiatric: no depression and no anxiety Physical Exam Constitutional: well developed and well nourished; no acute distress Eyes: + anicteric sclerae ENMT: no visible abscess right upper gumline, no purulent drainage or gingival bleeding moderate right facial swelling, worse along upper jawline, with exquisite tenderness Neck: trachea midline no significant LAD Respiratory: no respiratory distress and no labored breathing Auscultation: lungs clear to auscultation bilaterally; no rales, no rhonchi and no wheezes Cardiovascular: Rate/Rhythm: regular rate and regular rhythm Heart Sounds: no murmur Vessels: dorsalis pedis pulses present and radial pulses present Gastrointestinal (Abdomen): Inspection/Auscultation: normal bowel sounds; abdomen not distended Percussion/Palpation: abdomen soft; abdomen nontender Musculoskeletal: Head/Neck/Chest: neck supple Extremities: no cyanosis and no clubbing Skin: no jaundice Neurologic: moves all extremities; no focal motor deficits Psychiatric: A+Ox3, euthymic affect Results & Data Results & Data ([facility]) Vital Signs (Past 12 Hours) Vital Signs Temp Pulse Pulse Resp BP BP Pulse Ox 07/29/21 18:51 64 12 130/74 97 07/29/21 15:01 36.4 C L 67 16 127/86 98 Laboratory Results Laboratory Results - last 24 hr 07/29/21 07/29/21 13:25 13:25 WBC 12.17 H RBC 4.35 Hgb 15.4 Hct 39.0 MCV 89.7 MCH 35.4 H MCHC 39.5 H D RDW Std Deviation 41.6 RDW Coeff of Millicent 12.7 Plt Count 292 MPV 9.4 Immature Gran % (Auto) 0.2 Neut % (Auto) 67.5 Lymph % (Auto) 24.8 Archuleta % (Auto) 7.1 Eos % (Auto) 0.3 Baso % (Auto) 0.1 Neut # (Auto) 8.21 H Lymph # (Auto) 3.02 Archuleta # (Auto) 0.87 H Eos # (Auto) 0.04 Baso # (Auto) 0.01 Immature Gran # (Auto) 0.02 Sodium 139 Potassium 3.6 Chloride 105 Carbon Dioxide 28 Anion Gap 6 BUN 16 Creatinine 0.67 Est Cr Clr Drug Dosing 123.3 Est GFR ( Amer) 126.5 Est GFR (Non-Af Amer) 109.2 BUN/Creatinine Ratio 23.9 H Glucose 76 Calcium 8.6 Total Bilirubin 0.3 D AST 13 ALT 15 Alkaline Phosphatase 55 Total Protein 7.0 Albumin 4.0 Globulin 3.0 Albumin/Globulin Ratio 1.[address] Soft Tissue of Neck on 07/27/21 - IMPRESSION: 1. Mild soft tissue swelling adjacent to the maxilla on the right with imaging artifact related to dental fillings. No focal fluid collection or abscess is seen. Clinical correlation for periodontal disease is necessary. 2. Mild bilateral chronic maxillary sinusitis. Medications Administered Discontinued Medications Sodium Chloride (Nss 1000ml) 1,000 mls @ 999 mls/hr IV .Q1H1M ONE Stop: 07/29/21 19:01 Last Admin: 07/29/21 18:57 Dose: 999 mls/hr Documented by: [id number] Ampicillin Sodium/Sulbactam Sodium 3,000 mg/ Sodium Chloride 108 mls @ 200 mls/hr IV NOW STA; Protocol Stop: 07/29/21 18:33 Last Admin: 07/29/21 19:18 Dose: 200 mls/hr Documented by: [id number] Methylprednisolone (Methylprednisolone 40 Mg/Ml Vial) 40 mg IV NOW STA Stop: 07/29/21 18:02 Last Admin: 07/29/21 18:53 Dose: 40 mg Documented by: [id number] Morphine Sulfate (Morphine Sulfate 10 Mg/Ml Carp/Vial) 6 mg IV NOW STA Stop: 07/29/21 18:02 Last Admin: 07/29/21 18:59 Dose: 6 mg Documented by: [id number] Ondansetron HCl (Ondansetron Inj 2 Mg/Ml 2 Ml Vial) 4 mg IV NOW STA Stop: 07/29/21 18:02 Last Admin: 07/29/21 18:58 Dose: 4 mg Documented by: [id number] Code Status & VTE Plan VTE Prophylaxis Plan VTE Prophylaxis will be ordered: Yes Supervising Physician Co-Signing Physician Notes I have seen and examined the patient and have discussed the case with the provider above. I agree with the assessment and plan as stated. 40 yo F with dental infection and facial swelling, refractory to oral abx. She denies fevers, chills, and reports numbness, severe pain in right face and worsened swelling. She is hemodynamically stable and afebrile on exam. No erythema is present, and I was unable to evaluate her right buccal mucosa and tooth area becuase of pain. No LAD present. Decreased sensation on right face from midface to chin and also on left lateral side of nose. Pupils PERRL, lungs CTAB, cardiac exam was normal. Labs reveal a mild leukocytosis (12K), normal BMP and kidney function with elevated BUN/creat ratio possibly reflecting mild dehydration with food avoidance and low appetite last couple of days. She was given Solumedrol 40mg in the ER and was started on Unasyn. Will continue this now pending source control with dental extraction possibly tomorrow. Minh, DO
[2021-07-29] MEDS ORDERED: oxyCODONE HCL IR 5 MG TAB (IMMEDIATE RELEASE) PO PRN (21:21)
--- NOTE | 2021-07-29 22:15 | Oral/Maxillofacial Consult ---
Date of Consultation July 29, 2021 History of Present Illness Attending Physician: Sarita Wilkinson DO History of Present Illness Oral Maxillofacial Surgery Exam Present Complaint: Pain and swelling getting worse and not improving, the right facial numbness started to spread to the left side of her face. Not drinking or eating Failed out patient therapy I saw Caryn and her significant other in my office this afternoon. 40 yo F with dental infection and facial swelling, refractory to oral abx. She denies fevers, chills, and reports numbness, severe pain in right face and worsened swelling. She is hemodynamically stable and afebrile on exam. No erythema is present, and I was unable to evaluate her right buccal mucosa and tooth area because of pain. Tooth # 3 is very painful to pressure. Decreased sensation on right face from midface to chin and also on left lateral side of nose. Pupils PERRL Facial nerve in tack slight lag when trying to raise upper right lip--due to pain/swelling Labs reveal a mild leukocytosis (12K), normal BMP and kidney function with elevated BUN/creat ratio possibly reflecting mild dehydration with food av oidance and low appetite last couple of days. She was given Solumedrol 40mg in the ER and was started on Unasyn. I will see Caryn Wednesday AM and decide on I&D and extraction dental extraction possibly tomorrow. Oral Exam: The dentist at [facility] referred to [facility] but they could not see her for at least 3-4 weeks. She came to see me today. Findings--1 week ago while she bit down and experienced severe pain # 3 tooth. On her MD placed her on Oral Amoxicillin. Swelling worsened on Wednesday with some right-sided facial numbness so pt came to the ED for evaluation. CT of the soft tissue of the neck showed inflammatory changes but no definitive abscess. Amoxicillin was changed to Augmentin and pt was told to keep f/u appt with dentist on Wednesday. The dentist at [facility] ([facility]) referred to [facility] but they could not see her for at least 3-4 weeks. She came to see me today. [facility] dentist disagreed with the Augmentin and changed her to azithromycin Z-Pac---not sure of the rational ? Today, she felt like the swelling was worse and the right facial numbness started to spread to the left side of her face. She was seen by Dr. Cartwright this afternoon who referred her to the ED to be admitted for IV antibiotics and possible intervention tomorrow. She denies fevers, chills, sweats. She has noted headaches. She is using ibuprofen 800 mg for pain (last dose in the waiting room) as well as oxycodone 5 mg (last dose around 9 am today). Caryn is in severe pain, still swollen, has not eaten, feels dizzy --taken AB and Pain Meds not able to swallow foods secondary to pain. Also paraesthesia from Infraorbital V-2 nerve some facial droop lower right lip (pain and swelling related). Given that after 1 week of oral AB no improvement, dehydration, pain and swelling IV antibiotics/ fluids medically necessary. Plan admission and surgical intervention I&D and extraction # 3 tomorrow or . Imaging: FINDINGS: I see no fracture of the tooth (#3) Soft tissues: There is mild soft tissue swelling present involving the right side of the face adjacent to the maxilla. However, imaging artifact is present related to dental fillings. No focal fluid collection or abscess is identified. Evaluation for periodontal disease is recommended. Salivary glands: Parotid and submandibular salivary glands are within normal limits. Airway: The cervical airway is widely patent. The epiglottis and aryepiglottic folds are normal bilaterally. The vocal cords are symmetric bilaterally. Paranasal sinuses:There is mucosal thickening seen involving the floors of both maxillary antra, right greater than left. The remaining paranasal sinuses are clear. Osseous structures: No acute osseous abnormalities are identified. However, there is imaging artifact present related to dental fillings. IMPRESSION: 1. Mild soft tissue swelling adjacent to the maxilla on the right with imaging artifact related to dental fillings. No focal fluid collection or abscess is seen. Clinical correlation for periodontal disease is necessary. 2. Mild bilateral chronic maxillary sinusitis. Soft tissue: floor of the mouth, tongue, hard/soft palate, posterior pharyngeal area all with in normal limits, no pathology or abnormal findings There is infraorbital swelling, Muco-Buccal fold swelling of the MB space. Oral Care: Overall oral care is good Occlusion: Class I TMJ exam: No pop, clicking, pain, good ROM, No history of TMJ injury or dysfunction Periodontal exam: Healthy gingival tissue without evidence of periodontal pathology. Noted swelling in the right upper mucobuccal fold from # 1-4 area, very tender, generalized swelling right cheek and under the right eye Head/Neck exam: Neck is supple, FROM, Able to extend and flex neck w/o difficulty, no masses, no abnormalities, no airway issues, no evidence of sleep apnea. Treatment Plan: Admission to [facility] service. To OR for I&D and extraction # 2 Set up with general anesthesia in hospital due to complexity of the procedure D/C when able on oral antibiotics Dr Cartwright will follow as out patient I reviewed the treatment plan and consent with the patient and . Understanding was expressed. Time was given for questions regarding the surgery, risks and post op care. Discussed alternative to treatment--procedure as planned, Do not do surgery consider I&D with Root canal--she wants # 3 removed --refused Endo. Risks discussed: Bleeding,Pain,swelling,infection, dry socket, delayed healing, nerve injury to face,lips,tongue,chin area which could be permanent (rare). The facial nerve weakness most likely due to pain on movement. V-2issue due to swelling and nerve irritation TMJ, jaw stiffness, change in bite (rare), ear pain (referred). Sinus problems like fistula or infection. Need to leave a small root fragment in place to avoid injury to nerve or sinus. Home care reviewed: tooth brushing, rinsing, follow up care with Dr Cartwright. diet=[id number] dental. Discussed activity level, driving/work while on Rx pain Meds. Surgery to be set up once the area becomes more organized and fluctuant for I&D . Allergies Allergy/AdvReac Type Severity Reaction Status Date / Time sumatriptan Allergy Severe HIVES Verified 07/29/21 14:05 "THROAT SWELLING SHUT" Home Medications Medication Instructions Recorded Confirmed Type hydrochlorothiazide 25 mg tablet 25 mg PO QAM PRN 07/29/18 07/29/21 History oxycodone 5 mg tablet 5 mg PO Q6H PRN #10 tab 07/28/21 07/29/21 Rx azithromycin 500 mg tablet 500 mg PO DAILY 07/29/21 07/29/21 History (Zithromax) Patient History Medical History Adverse reaction to contrast media Depression Endometriosis Migraine HX Seasonal allergies Temporomandibular joint disorder LOCKED X 1 ("LONG TIME AGO") Surgical History History of appendectomy History of dilatation and curettage History of hysterectomy S/P ACL surgery Family History Aunt Breast cancer Grandmother (Paternal) Breast cancer Social History Smoking Status: Never smoker Second Hand Exposure: No; Do You Dip or Chew Tobacco: No; Tobacco Cessation Education Requested by Patient: No Hx Alcohol Use: Yes Alcohol type: wine and hard liquor Hx Substance Use: No Preferred Language: Spanish Communication Ability: Effective Visual Impairment: No 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) Vital Signs (Past 12 Hours) Vital Signs Temp Pulse Pulse Pulse Resp BP BP 07/29/21 21:00 60 16 108/76 07/29/21 18:51 64 12 130/74 07/29/21 15:01 36.4 C L 67 16 127/86 Pulse Ox 07/29/21 21:00 96 07/29/21 18:51 97 07/29/21 15:01 98 PG Care Time/CCT Total # of Minutes Spent Total Time Spent with Patient: Total time spent is greater than 50% in coordination of care (as documented) at patient's floor/unit and/or counseling patient: Coding Level of Care Code None
[2021-07-29] MEDS: IBUPROFEN 800 MG TAB PO PRN (23:11)
[2021-07-29 23:39] LABS: Appearance Urine Clear (Clear); Bilirubin Urine Negative (Negative); Blood Urine Negative (Negative); Color Urine Yellow; Glucose Urine UA Negative (Negative); Ketones Urine Negative (Negative); Leukocyte Esterase Urine Negative (Negative); Nitrite Urine Negative (Negative); Protein Urine Negative (Negative); Specific Gravity Urine 1.017 (1.000-1.030); Urobilinogen Urine Negative (Negative); pH Urine 7.5 (4.5-7.5)
[2021-07-29] MEDS ORDERED: ONDANSETRON INJ 2 MG/ML 2 ML VIAL IV PRN (23:42)
[2021-07-30] MEDS: AMPICILLIN/SULBACTAM SOD 3,000 MG in 0.9 % SODIUM CHLORIDE 100 ML IV SCH ×4 (01:49→20:05)
[2021-07-30] MEDS: IBUPROFEN 800 MG TAB PO PRN ×2 (06:25→20:05)
[2021-07-30 07:53] LABS: BUN Creatinine Ratio 24.5 (10-20); Calcium 8.4 mg/dl (8.5-10.1); Creatinine Clr Calc Pharmacy 155.4 ml/min; Est GFR (African American) 136.7 ml/min; Est GFR (Non-African American) 117.9 ml/min
--- NOTE | 2021-07-30 08:30 | Oral/Maxillofacial Progress Nt ---
Date of Service July 30, 2021 Assessment & Plan Admission and Anticipated Discharge Date Admission Date: July 29, 2021 Subjective I saw Caryn in room 353 at 8:15 am She is starting to feel better with less pain. Swelling is still present and tooth # 3 very tender. My plan is to do the I&D today in OR with GA and ext # 3 Caryn has been having issues with this tooth since she had the crown placed about 9 months ago. She is NOT interested in saving the tooth and wants the tooth removed. Treatment Plan: Set up with general anesthesia in hospital due to complexity of the procedure I reviewed the treatment plan and consent with the patient this AM. Understanding was expressed. Time was given for questions regarding the surgery, risks and post op care. Discussed alternative to treatment--procedure as planned, Do not do surgery do root canal on #3 Risks discussed: Bleeding,Pain,swelling,infection, dry socket, delayed healing, nerve injury to f que,lips,tongue,chin area which could be permanent (rare). TMJ, jaw stiffness, change in bite (rare), ear pain (referred). Sinus problems like fistula or infection. Need to leave a small root fragment in place to avoid injury to nerve or sinus. Relationship of #3 to sinus PLAN NPO COVID neg IV antibiotics Set up in OR today. Results & Data ([facility]) Vital Signs (Past 12 Hours) Vital Signs Temp Pulse Resp BP Pulse Ox 07/30/21 08:19 36.6 C 51 L 16 124/71 95 07/29/21 22:15 36.4 C L 57 L 18 126/80 97 07/29/21 21:50 36.4 C L 57 L 16 126/80 97 07/29/21 21:00 60 16 108/76 96 PG Care Time/CCT Total # of Minutes Spent Total Time Spent with Patient: Total time spent is greater than 50% in coordination of care (as documented) at patient's floor/unit and/or counseling patient: Coding Level of Care Code None
[2021-07-30 09:26] LABS: Basophils # (auto) 0.01 K/uL (0-0.2); Basophils % (auto) 0.1 %; Hematocrit (blood only) 35.5 % (37-47); Immature Granulocytes # (auto) 0.02 K/uL (0.00-0.02); Immature Granulocytes % (auto) 0.2 %; Lymphocytes % (auto) 13.6 %; Mean Corpuscular Hemoglobin 29.3 pg (25-34); Mean Corpuscular Hgb Conc 33.8 g/dL (32-36); Mean Corpuscular Volume 86.8 fL (80-100); Mean Platelet Volume 9.8 fL (7.4-10.4); Monocytes # (auto) 0.29 K/uL (0.11-0.59); Neutrophils # (auto) 7.93 K/uL (1.4-6.5); Neutrophils % (auto) 83.1 %; Platelet Count 261 K/uL (130-400); RDW Coefficient of Variation 12.5 % (11.5-14.5); RDW Standard Deviation 40.2 fL (36.4-46.3); Red Blood Count 4.09 M/uL (4.2-5.4); White Blood Count 9.55 K/uL (4.8-10.8)
--- NOTE | 2021-07-30 13:16 | Hospitalist Progress Note ---
Date of Service July 30, 2021 Assessment & Plan (1) Dental infection: (2) Facial cellulitis: Plan: 40 yr old who presented to ED with dental infection, facial swelling that has been refractory to oral antibiotics. She was initially seen in the oral maxillofacial surgery office prior to ED eval. Admit to med/surg continue IV unasyn remains NPO to undergo tooth extraction today by Dr. Cartwright Dispo: med/surg, to have surg today, continue IV antibiotics, like d/c to home when cleared by Dr. Cartwright FULL CODE PCP: Jelani Pt was seen and examined in collaboration with Dr. Gomes, please see addendum Admission and Anticipated Discharge Date Admission Date: July 29, 2021 Supervising Physician Co-Signing Physician Notes Patient seen and examined by me, care coordinated with Joshua Ibrahim PA-C, please refer to her note above for further detail. Patient reports decrease in swelling on her right side, however her right cheek is still significantly swollen and tender. Patient is awake alert oriented, answering questions appropriately. Denies any fevers chills, chest pain shortness of breath, nausea, abdominal pain. Lungs are clear to auscultation bilaterally without any wheezing rhonchi or crackles. Heart sounds regular. Abdomen soft nontender nondistended. Skin is dry warm well perfused. Patient moves extremities Patient was started on IV Unasyn yesterday, she feels already significant improvement. Plan for OR with Dr. Cartwright, for #3 tooth extraction. Steven Gomes MD Subjective Patient was seen and examined in room 353. Follow-up dental infection. She feels much improved since presenting to ED. She feels the right side of her face is not swollen and painful. Currently she denies fever, chills, sweats, lightheadedness, dizziness, chest pain, shortness of breath, nausea, vomiting, abdominal pain. She has been n.p.o. since last evening. States plans to go to the OR today. She denies any medical problems including HTN or HLD. She denies any tobacco use, socially uses alcohol. Review of Systems Review of Systems: All systems reviewed & are unremarkable except as noted in HPI & below Physical Exam Physical Exam: Gen: WD/WN, NAD, A&O x3 HEENT: Normocephalic, atraumatic, conjunctivae moist, sclerae anicteric, patient is have evidence of right-sided facial swelling, mild erythema mild trismus Lung: Clear to Auscultation bilaterally, no wheezes/rales/rhonchi Heart: Regular rate, regular rhythm, no murmurs, rubs, or gallops Abdomen: Soft, NT, ND +BS x 4 Extremities: No edema Skin: Warm, no rash, negative turgor. Results & Data Results & Data ([facility]) Vital Signs (Past 12 Hours) Vital Signs Temp Pulse Resp BP Pulse Ox 07/30/21 11:49 36.4 C L 54 L 16 118/77 97 07/30/21 08:19 36.6 C 51 L 16 124/71 95 Laboratory Results Short CBC 07/29/21 07/30/21 Range/Units 13:25 06:49 WBC 12.17 H 9.55 (4.8-10.8) K/uL Hgb 15.4 12.0 D (12.0-16.0) g/dL Hct 39.0 35.5 L (37-47) % Plt Count 292 261 (130-400) K/uL BMP 07/29/21 07/30/21 13:25 06:49 Sodium 139 134 L Potassium 3.6 4.0 Chloride 105 104 Carbon Dioxide 28 24 BUN 16 13 Creatinine 0.67 0.53 L Glucose 76 111 H Calcium 8.6 8.4 L Liver Function 07/29/21 Range/Units 13:25 Total Bilirubin 0.3 D (0.2-1.0) mg/dl AST 13 (13-39) U/L ALT 15 (7-52) U/L Alkaline Phosphatase 55 (34-104) U/L Albumin 4.0 (3.4-5.0) gm/dl Urine 07/29/21 Range/Units 22:55 Urine Color Yellow Urine Appearance Clear (Clear) Urine pH 7.5 (4.5-7.5) Ur Specific [place] 1.017 (1.000-1.030) Urine Protein Negative (Negative) Urine Glucose (UA) Negative (Negative) Medications Administered Current Inpatient Medications Ampicillin Sodium/Sulbactam Sodium 3,000 mg/ Sodium Chloride 108 mls @ 200 mls/hr IV Q6H [facility]; Protocol Stop: 08/09/21 01:59 Last Infusion: 07/30/21 09:10 Dose: Infused Documented by: Ibuprofen (Ibuprofen 800 Mg Tab) 800 mg PO TID PRN PRN Reason: Pain Stop: 08/28/21 21:20 Last Admin: 07/30/21 06:25 Dose: 800 mg Documented by: Ondansetron HCl (Ondansetron Inj 2 Mg/Ml 2 Ml Vial) 4 mg IV Q8H PRN PRN Reason: Nausea And Vomiting Stop: 08/28/21 23:41 Oxycodone HCl (Oxycodone Hcl Ir 5 Mg Tab (Immediate Release)) 5 mg PO Q6H PRN PRN Reason: pain Stop: 08/12/21 21:20
[2021-07-30] MEDS ORDERED: PROPOFOL IV EMULSION 10 MG/ML 20 ML VIAL IV ONE (14:20)
[2021-07-30] MEDS ORDERED: LIDOCAINE 2% 2 ML VIAL/AMP(20MG/ML) INFIL ONE (14:20)
[2021-07-30] MEDS ORDERED: fentaNYL citrate 100 MCG/2 ML VIAL ONE ×2 (14:20→17:06)
[2021-07-30] MEDS ORDERED: MIDAZOLAM HCL 1 MG/ML 2ML VIAL ONE (14:20)
[2021-07-30] MEDS ORDERED: LIDOCAINE/EPINEPHRINE 1.7 ML CTR ONE (15:06)
[2021-07-30] MEDS ORDERED: BUPIVACAINE/EPINEPHRINE 0.5% 1:200,000 1.8 ML CARP ONE (15:07)
[2021-07-30] MEDS ORDERED: CHLORHEXIDINE GLUCONATE 0.12% 480 ML ONE (15:07)
[2021-07-30] MEDS ORDERED: DEXAMETHASONE SOD INJ 4 MG/ML VIAL ONE (15:36)
[2021-07-30] MEDS ORDERED: ROCURONIUM BROMIDE 10 MG/ML 5 ML VIAL IV ONE (15:36)
[2021-07-30] MEDS ORDERED: ONDANSETRON INJ 2 MG/ML 2 ML VIAL ONE (15:36)
--- NOTE | 2021-07-30 15:48 | Anesthesiology Consultation ---
Date of Service July 30, 2021 Assessment & Plan Chart Review Chart Review: Acceptable Risk for Surgery Consults Requested none History Surgery Operation Date: 07/30/21 09:10 Proposed Procedures p Right Facial Abscess Incision and Drainage - Hardeep Cartwright, YOU s Extraction #3 - Hardeep R CartwrightYOU Height/Weight Height: 5 ft 6 in Weight: 87.2 kg Allergies Allergy/AdvReac Type Severity Reaction Status Date / Time sumatriptan Allergy Severe HIVES Verified 07/29/21 14:05 "THROAT SWELLING SHUT" Medications Home Medications Medication Instructions Recorded Confirmed Last Taken hydrochlorothiazide 25 mg tablet 25 mg PO QAM PRN 07/29/18 07/29/21 07/27/21 oxycodone 5 mg tablet 5 mg PO Q6H PRN #10 tab 07/28/21 07/29/21 Unknown azithromycin 500 mg tablet 500 mg PO DAILY 07/29/21 07/29/21 Unknown (Zithromax) Active Medications Generic Name Dose Route Start Last Admin Trade Name Freq PRN Reason Stop Dose Admin Ampicillin Sodium/Sulbactam 108 mls @ 200 mls/hr 07/30/21 02:00 07/30/21 14:11 Sodium 3,000 mg/ Sodium IV 08/09/21 01:59 Infused Chloride Q6H MAIK Infusion Protocol Ibuprofen 800 mg 07/29/21 21:21 07/30/21 06:25 Ibuprofen 800 Mg Tab PO 08/28/21 21:20 800 mg TID PRN Administration Pain NPO Date Last Intake of Fluids: 07/29/21 Time Last Intake of Fluids: 22:00 Date Last Intake of Solids: 07/29/21 Time Last Intake of Solids: 22:00 Past Medical History Medical History Adverse reaction to contrast media Depression Endometriosis Migraine HX Seasonal allergies Temporomandibular joint disorder LOCKED X 1 ("LONG TIME AGO") Past Family History Family History Aunt Breast cancer Grandmother (Paternal) Breast cancer Past Surgical History Surgical History History of appendectomy History of dilatation and curettage History of hysterectomy S/P ACL surgery Social History Smoking Status: Never smoker Do You Dip or Chew Tobacco: No Hx Alcohol Use: Yes Alcohol type: wine and hard liquor alcohol intake frequency: a few times a month Hx Substance Use: No substance use type: does not use Physical Exam Vital Signs Last Vital Signs Temp 36.6 C 07/30/21 15:05 Pulse 67 07/30/21 15:05 Resp 16 07/30/21 15:05 BP 132/80 07/30/21 15:05 Pulse Ox 98 07/30/21 15:05 Testing Laboratory Results 07/30/21 06:49 07/30/21 06:49 Urine Color Yellow 07/29/21 22:55 Urine Appearance Clear (Clear) 07/29/21 22:55 Urine pH 7.5 (4.5-7.5) 07/29/21 22:55 Ur Specific [place] 1.017 (1.000-1.030) 07/29/21 22:55 Urine Protein Negative (Negative) 07/29/21 22:55 Urine Glucose (UA) Negative (Negative) 07/29/21 22:55 Urine Ketones Negative (Negative) 07/29/21 22:55 Urine Nitrite Negative (Negative) 07/29/21 22:55 Ur Leukocyte Esterase Negative (Negative) 07/29/21 22:55
--- NOTE | 2021-07-30 15:50 | History & Physical Bridge Note ---
Date of Service July 30, 2021 History & Physical Bridge Note I have examined the patient, reviewed the History & Physical and in the interval since the performance of the History & Physical I have noted the following changes of clinical significance: no changes noted OK for I&D with ext of # 3 COVID Neg
[2021-07-30] MEDS ORDERED: ONDANSETRON INJ 2 MG/ML 2 ML VIAL IV PRN ×2 (15:54→17:11)
[2021-07-30] MEDS ORDERED: ATROPINE SULFATE 0.1 MG/ML 10ML SYR IV PRN ×2 (15:54→17:11)
[2021-07-30] MEDS ORDERED: HYDROmorphone INJ 2 MG/ML SYR/VIAL IV PRN ×2 (15:54→17:11)
[2021-07-30] MEDS ORDERED: ePHEDrine sulfate 50 MG/ML AMP IV PRN ×2 (15:54→17:11)
[2021-07-30] MEDS ORDERED: fentaNYL citrate 100 MCG/2 ML VIAL IV PRN ×2 (15:54→17:11)
[2021-07-30] MEDS ORDERED: PROMETHAZINE HCL 12.5 MG in SODIUM CHLORIDE 0.9% 50 ML IV PRN ×2 (15:54→17:11)
[2021-07-30] MEDS ORDERED: oxyCODONE HCL IR 5 MG TAB (IMMEDIATE RELEASE) PO PRN (16:44)
--- NOTE | 2021-07-30 17:35 | Anesthesiology Progress Note ---
Date of Service July 30, 2021 Anesthesia Post Procedure Vital Signs Vital Signs: Temp Pulse Pulse Resp BP Pulse Ox 07/30/21 17:30 37.3 C 58 L 17 130/87 97 07/30/21 17:20 62 16 116/85 97 07/30/21 17:10 57 L 15 125/88 100 07/30/21 17:00 60 17 137/90 100 07/30/21 16:51 36.2 C L 68 20 154/95 H 100 07/30/21 15:05 36.6 C 67 16 132/80 98 07/30/21 11:49 36.4 C L 54 L 16 118/77 97 07/30/21 08:19 36.6 C 51 L 16 124/71 95 07/29/21 22:15 36.4 C L 57 L 18 126/80 97 07/29/21 21:50 36.4 C L 57 L 16 126/80 97 07/29/21 21:00 60 16 108/76 96 07/29/21 18:51 64 12 130/74 97 Pain Intensity Right Upper Jaw: Pain Intensity: 4 Transfer of Care Handoff Completed per policy Notes Mental Status: alert / awake / arousable and participated in evaluation Patient Amnestic to Procedure: Yes Nausea / Vomiting: adequately controlled Pain: adequately controlled Airway Patency, RR, SpO2: stable & adequate BP & HR: stable & adequate Hydration State: stable & adequate Anesthetic Complications: no major complications apparent
[2021-07-30] MEDS: oxyCODONE HCL IR 5 MG TAB (IMMEDIATE RELEASE) PO PRN ×2 (17:47→21:55)
--- NOTE | 2021-07-30 21:51 | Operative Report ---
PG Post Operative Report Pre & Post Diagnosis ICD 10 Cellulitis of the face L03.211 Cellulitis of the mouth K12.2 Dentoalveolar Abscess K04.7 CPT 08047 I&D complicated deep facial abscess right cheek, vestibule and infraorbital area Operation Date: 07/30/21 09:10 Pre-Op Diagnosis: DENTAL INFECTION Post-Op Diagnosis: DENTAL INFECTION I identified the patient and participated in the time-out.: Yes Procedure Operation Date: 07/30/21 09:10 Actual Procedures p Right Facial Abscess Incision and Drainage - Hardeep Cartwright DMD s Extraction #3 - Hardeep Cartwright DMD Surgeon Hardeep Cartwright DMD System Trainer none Estimated Blood Loss 3 Findings Consistent with Post-Op Diagnosis Right side cheek and infraorbital acute facial infection not responding to out patient care Specimens I&D right facial Drains none Anesthesia Type General Complications none Indications Right side cheek and infraorbital acute facial infection not responding to out patient care Description of Procedure ICD 10 Cellulitis of the face L03.211 Cellulitis of the mouth K12.2 Dentoalveolar Abscess K04.7 CPT 42045 I&D complicated deep facial abscess right cheek, vestibule and infraorbital area Operation Date: 07/30/21 09:10 Pre-Op Diagnosis: DENTAL INFECTION Post-Op Diagnosis: DENTAL INFECTION Right Facial Abscess Incision and Drainage - Hardeep Cartwright DMD s Extraction #3 - Hadreep Cartwright DMD I&D (intraoral of deep facial plane) Once cleared for surgery general anesthesia was achieved, the eyes were protected by the anesthesia dept criteria.. A time out was take for patient ID, antibiotics, equipment and position verification once all agreed the procedure began. Local anesthesia was given into each area using Marcaine with a vasoconstrictor ( 1.8 ml per site). Problem: Pain,swelling located---right cheek, infraorbital area not responding to out patient care Finding: There is a carious, fractured and infected tooth at site#:3 that has now caused acute facial infection Plan: Surgical removal of the following tooth # 3 With intraoral I&D right side of face Procedure report: After a complete H&P/ vital signs and oral exam was completed the patient was ready for the surgical procedure. Informed consent was reviewed and the consent form was signed. I gave them time to discuss any questions and if I explained the surgery that I will be performing to their understanding. The patient was positioned and light adjusted, Peridex mouth rinse was used and a final time out was taken to review the correct procedure, once agreed A throat pack was placed after the oral cavity was irrigated with saline. Once a surgical level of anesthesia was obtained and the local anesthesia was given time for the blocks the surgery was started. I turned my attention to the upper wisdom teeth first Actual Procedures p Incision and Drainage infraorbital space and subperiosteal space right side ; Removal of Tooth #3 Once cleared for surgery general anesthesia was achieved, the eyes were protected by the anesthesia dept criteria. A time out was take for patient ID, antibiotics, equipment and position verification once all agreed the procedure began. Local anesthesia using Marcaine with a vasoconstrictor ( 1.8 ml per site) given into A throat pack was placed after the oral cavity was irrigated with saline. Once a surgical level of anesthesia was obtained and the local anesthesia was given time for the blocks the surgery was started. I turned my attention to the infection which was located in the cheek, infraorbital area and subperiosteal/mucobuccal space from area 1-4 upper right side . Incision and Drainage Using a 15 blade an incision was made lateral to the alveolar ridge in the mucobuccal fold. Once the incision was made a lot of pus extruded from the site. This drainage was cultured for anaerobic and aerobic bacteria. A curved hemostat was carefully placed into the infected space along the sinus area of the upper jaw and into the infraorbital space. Some further drainage was now allowed to escape. I palpated the cheek, infraorbital and side of the nose and no further drainage was expressed. The area was irrigated with at least 100 ml of NS solution. I now turned my attention to remove the # 3 tooth. Surgical Note: for Upper # 3 The full thick Muco-periosteal flap was made on the facial aspect from # 1-4 . The flap was reflected to expose the the subperiosteal space and the bone adjacent to # 3. The rongeur was used to remove bone, the tooth was removed with a 301 elevator and upper forceps ,Using a controlled force the tooth was finally removed ,there was a large amount of granulation tissue on the apex and some more pus that was expressed.Once removed the roots were inspected and the socket was curetted. Sutures used: 2-0 Chromic A gauze pressure pack was placed over the socket Rx given: Augmentin and Vicodin When the procedure was completed I inspected the sites to insure all bleeding was controlled. I removed the throat pack and suctioned the throat. A gauze pressure dressings was placed over site # 3 All instrument and sponge count was correct. the patient was allowed to awake from the anesthesia. Once full awake the anesthesia tube was removed and the patient was taken to the recovery room with all vital sign stable. The patient tolerated the surgery very well. I will follow the patient in my office at 4 pm on Aug 07 2021. Rx and instructions will be given upon discharge. Patient may be D/C in AM as per medical service I attest to the content of the Intraoperative Record and any orders documented therein. Any exceptions are noted below.
[2021-07-31] MEDS: AMPICILLIN/SULBACTAM SOD 3,000 MG in 0.9 % SODIUM CHLORIDE 100 ML IV SCH ×2 (01:48→08:15)
[2021-07-31] MEDS: oxyCODONE HCL IR 5 MG TAB (IMMEDIATE RELEASE) PO PRN (08:19)
--- NOTE | 2021-07-31 09:27 | Discharge Summary ---
Date of Service July 31, 2021 Admission HPI Per Admitting Provider This is a 40 y/o female with a PMH of migraines, endometriosis and seasonal allergies who was referred to the ED today from oral maxillofacial surgery due to progressive facial swelling from an underlying dental infection. Pt reports that six days ago she heard a crack in a right upper tooth while she was eating. She has had a crown in a right upper molar which she thought may have cracked. Pain started almost immediately and gradually worsened. She called her dentist ([facility]) but they were not able to get her in until yesterday. She was started on Amoxicillin. On Wednesday, three days ago, she started with right facial swelling. This swelling worsened on Wednesday with some right-sided facial numbness so pt came to the ED for evaluation. CT of the soft tissue of the neck showed inflammatory changes but no definitive abscess. Amoxicillin was changed to Augmentin and pt was told to keep f/u appt with dentist on Wednesday. Pt saw her dentist yesterday who disagreed with the Augmentin and changed her to azithromycin. Today, she felt like the swelling was worse and the right facial numbness started to spread to the left side of her face. She was seen by Dr. Cartwright this afternoon who referred her to the ED to be admitted for IV antibiotics and possible intervention tomorrow. She denies fevers, chills, sweats. She has noted headaches. She is using ibuprofen 800 mg for pain (last dose in the waiting room) as well as oxycodone 5 mg (last dose around 9 am today). Admission Exam Per Admitting Provider Constitutional: well developed and well nourished; no acute distress Eyes: + anicteric sclerae ENMT: no visible abscess right upper gumline, no purulent drainage or gingival bleeding moderate right facial swelling, worse along upper jawline, with exquisite tenderness Neck: trachea midline no significant LAD Respiratory: no respiratory distress and no labored breathing Auscultation: lungs clear to auscultation bilaterally; no rales, no rhonchi and no wheezes Cardiovascular: Rate/Rhythm: regular rate and regular rhythm Heart Sounds: no murmur Vessels: dorsalis pedis pulses present and radial pulses present Gastrointestinal (Abdomen): Inspection/Auscultation: normal bowel sounds; abdomen not distended Percussion/Palpation: abdomen soft; abdomen nontender Musculoskeletal: Head/Neck/Chest: neck supple Extremities: no cyanosis and no clubbing Skin: no jaundice Neurologic: moves all extremities; no focal motor deficits Psychiatric: A+Ox3, euthymic affect Principal Diagnosis Dental Infection Right Facial Cellulitis Discharge Exam Gen: WD/WN, NAD, A&O x3 HEENT: Normocephalic, atraumatic, conjunctivae moist, sclerae anicteric, patient is have evidence of right-sided facial swelling, mild erythema mild trismus Lung: Clear to Auscultation bilaterally, no wheezes/rales/rhonchi Heart: Regular rate, regular rhythm, no murmurs, rubs, or gallops Abdomen: Soft, NT, ND +BS x 4 Extremities: No edema Skin: Warm, no rash, negative turgor. Discharge Data Allergies Allergy/AdvReac Type Severity Reaction Status Date / Time sumatriptan Allergy Severe HIVES Verified 07/29/21 14:05 "THROAT SWELLING SHUT" Consultations 07/29/21 19:11 ED Decision to Admit Stat 07/29/21 21:21 Consult Oromaxillofacial Surgery Routine Procedures Performed Operation Date: 07/30/21 09:10 Actual Procedures p Right Facial Abscess Incision and Drainage - Hardeep Cartwright DMD s Extraction #3 - Hardeep Cartwright DMD Hospital Course (1) Dental infection: (2) Facial cellulitis: 40 yr old who presented to ED with dental infection, facial swelling that has been refractory to oral antibiotics. She was initially seen in the oral maxillofacial surgery office prior to ED eval. She underwent I&D of R tooth abscess and extraction of tooth #[address] Cartwright. She was treated with IV Unasyn and transitioned to oral augmentin at discharge. On day of discharge she was hemodynamically stable and afebrile. Her pain and swelling was subsiding and she was tolerating a liquid diet. She has follow up appointments with Dr. Cartwright and PCP scheduled. Total Time Total Time Spent Total Time Spent (In Minutes): 35 minutes Discharge Plan Discharge Items Patient Disposition: Home - Self-Care Reason For Visit: DENTAL INFECTION Discharge Diagnosis: s/p right facial infection Condition on Discharge: Good Activity: Resume your previous activity Lifting: Gradually increase as tolerated Bathing: No limitations Exercise/Sports: Gradually increase as tolerated Driving/Machine Use: Resume 1 day after discharge Weightbearing: Full weightbearing Non-emergency contact: Surgeon Call non-emergency contact if: you have any medication questions, your pain is not controlled, your pain is worsening, your temperature is above 101.5, your wound has increased redness, your wound has increased drainage and your wound pain has increased Follow-up/Referrals: Elijah Palomares MD [Primary Care Provider] - 08/05/21 2:40 pm (Date & Time 08/05/2021 2:40 PM Provider Elijah Palomares MD [facility] ) Hardeep Cartwright DMD [Physician] - Diet: Regular Diet Texture: Easy to Chew Lesley Attending Provider Instructions: ADDITIONAL ACTIVITY RECOMMENDATIONS: * [place] teeth after every meal. It is very important to keep your mouth clean to prevent infection. * Starting tonight rinse with the Peridex as directed then 2 x a day * it is very important to keep well hydrated, this prevents fever and possible dry socket pain SPECIAL CARE INSTRUCTIONS: *It is not uncommon that between day 2-4 that your swelling will be at its worst this is very normal, do not be alarmed. * Once you get home apply heat (hot water bottle or heating pad) for the next two days, as often as possible. * Tomorrow start rinsing your mouth with 1/2 teaspoon salt in 8 ounces warm water. This rinse should be used every 4-6 hours. * You may experience slight nausea. To prevent this, never take your medication on an empty stomach. If nauseated, take small sips of mayra tony until you feel better; then you may start on applesauce and toast. * Some swelling is common. It should gradually decrease within 4-5 days. * A certain amount of bleeding is to be expected. It is often possible to control mild oozing by placing folded gauze over the area and biting down for 30 minutes. If you are unable to control excessive bleeding, call Dr Cartwright at [phone] * You may experience some discomfort for a few days. If pain or swelling increases, Call Dr Cartwright * Return to the office for a follow up check up on: WednesdayAUGUST 07 at 4 PM * office address--[address] [place] phone # [phone] [employer] Provider Instructions: MEDICATION CHANGES: Augmentin 875mg-125mg twice daily for 10 days. Oxycodone 5mg every 6 hours as needed for severe pain. Tylenol 500mg every 6 hours as needed for pain. PENDING TEST RESULTS: Culture results from surgery RECOMMENDATIONS FOR FOLLOW-UP: Please follow up with Primary Care Provider as scheduled. Please follow all of Dr. Wilson recommendation for mouth care. Please keep follow up appointment with Dr. Cartwright. OTHER INSTRUCTIONS: Seek medical attention if you have: * temperature above 101 * chest pain or trouble breathing * abdominal pain, nausea, vomiting * diarrhea, dark stools or bloody stools * any unanswered questions or concerns Call 911 if symptoms are severe. Please take good care of yourself. It has been a pleasure taking care of you. Please take care of yourself. If you have any questions regarding your recent hospitalization please contact [facility] and request Christy Correa @ [phone]. Caroline Ibrahim PA-C Pending Studies at Discharge: Yes Studies:: results of C&S Stand-Alone Forms: My [facility], Smoking Cessation Medications and DC Order Prescriptions: Continued ondansetron HCl 8 mg tablet 8 mg PO Q8H PRN (Reason: nausea and vomiting) Qty: 10 RF: 0 hydrochlorothiazide 25 mg Tablet 25 mg PO QAM PRN (Reason: Edema) RF: 0 amoxicillin-pot clavulanate 875-125 mg tablet 1 tab PO Q12H Qty: 20 RF: 0 oxycodone 5 mg tablet 5 mg PO Q6H PRN (Reason: pain) Qty: 10 RF: 0 Discontinued azithromycin [Zithromax] 500 mg tablet 500 mg PO DAILY RF: 0 Discharge Orders: Discharge Order (Routine); Ordered 07/31/21 Ordered By: Caroline Ibrahim Admission Data Admit Date/Time: 07/29/21 19:01 Attending Provider: Kaiser Gomes Admit Provider: Sarita Wilkinson Primary Care Provider: Elijah Palomares Other Providers: Caroline Ibrahim ; Sarita Wilkinson ; Hardeep Cartwright Supervising Physician Co-Signing Physician Notes Patient seen and examined by fl, care coordinated with Joshua Ibrahim PA-C, please refer to her note above for further detail. Pt is a 40 yr old F who presented with dental infection, and facial swelling that has been refractory to oral antibiotics. She underwent I&D of R tooth abscess and extraction of tooth #[address] Cartwright. She was treated with IV Unasyn and transitioned to oral augmentin at discharge. Currently her pain and swelling is subsiding and she is tolerating a liquid diet. She is afebrile and hemodynamically stable. Lungs are clear to auscultation bilaterally without any wheezing rhonchi or crackles, heart sounds regular. Abdomen soft nontender nondistended. Right facial swelling significantly decreased, also tenderness to palpation decreased. She has follow up appointments with Dr. Cartwright and PCP scheduled. Steven Gomes MD
== END 2021-07-31 13:37 | disposition home or self-care (01) ==
LOC: ED 14:51 → 3W 14:51 → SUATTDRO 19:01 → 3W 21:03